=== PATIENT | male | born 1955 | race Caucasian/White ===

== ENCOUNTER 2020-10-14 15:13 | Outpatient (REF) | payer MEDICARE, SELFPAY ==
[2020-10-14 17:42] LABS: MANUAL DIFF FLAG NO
[2020-10-14 17:46] LABS: Basophils Absolute Auto 0.1 X10*3/uL (0.0-0.2); Basophils Percent Auto 0.8 % (0-2); Eosinophils Absolute Auto 0.6 X10*3/uL (0.0-0.4); Eosinophils Percent Auto 6.1 % (0-4); Hematocrit 44.7 % (42-52); Hemoglobin 14.6 g/dl (14.0-18.0); Imm Gran Abs Auto 0.02 X10*3/uL (0.00-0.03); Imm Gran Pct Auto 0.2 % (0.0-0.4); Lymphocytes Absolute Auto 2.8 X10*3/uL (1.2-4.9); Mean Corpuscular HGB Conc 32.7 g/dl (31.0-36.0); Mean Corpuscular Volume 88.7 fL (80-98); Monocytes Absolute Auto 0.7 X10*3/uL (0.1-1.2); Monocytes Percent Auto 6.3 % (2-11); Neutrophils Absolute Auto 6.2 X10*3/uL (2.0-8.3); Neutrophils Percent Auto 59.6 % (45-73); Platelet Count 412 X10*3/uL (160-400); Red Blood Count 5.04 X10*6/uL (4.60-5.80); Red Cell Distribution Width 13.1 % (11.0-16.0); White Blood Count 10.4 X10*3/uL (4.8-10.8)
[2020-10-14 18:19] LABS: Alanine Aminotransferase 13 U/L (0-40); Albumin Level 4.5 g/dL (3.5-5.0); Alkaline Phosphatase 108 U/L (39-117); Anion Gap 16 (12-20); Aspartate Amino Transferase 15 U/L (5-37); Bilirubin Direct 0.4 mg/dL (0.0-0.5); Bilirubin Total 0.8 mg/dL (0.0-1.0); Blood Urea Nitrogen 6 mg/dL (9-16); Calcium 9.2 mg/dL (8.4-10.2); Carbon Dioxide 25 mmol/L (22-29); Chloride 100 mmol/L (96-108); Estimated Glomerular Filt Rate > 60; Glucose Random 174 mg/dL (60-115); Iron 50 mcg/dL (45-160); Percent Iron Saturation 13 % (15-50); Potassium 4.6 mmol/l (3.3-5.1); Sodium 136 mmol/L (135-145); Total Iron Binding Capacity 383 mcg/dL (228-428); Total Protein 6.3 g/dL (6.5-8.0); Unsaturated Iron Binding 333 ug/dL
[2020-10-14 18:39] LABS: Ferritin 57 ng/mL (20-250)
== END 2020-10-14 15:14 | disposition home or self-care (01) ==
LOC: HO.MANLDS 15:13
PROVIDERS: PCP Physician Assistant; Visit Provider Physician Assistant
DX: K92.1 Melena (principal)
CPT/HCPCS: 36415; 80053; 80076; 82248; 82728; 83540; 85025

== ENCOUNTER 2020-10-17 | Outpatient (REF) | payer MEDICARE, SELFPAY ==
[2020-10-21 14:45] LABS: OBS Int Ctl Valid YES; OBS1 POS (NEG); OBS2 NEG (NEG); OBS3 NEG (NEG)
== END 2020-10-17 00:01 | disposition home or self-care (01) ==
LOC: HO.LNP
PROVIDERS: Visit Provider Physician Assistant
DX: K92.1 Melena (principal)
CPT/HCPCS: 82270

== ENCOUNTER 2021-03-03 15:31 | Outpatient (REF) | payer MEDICARE, SELFPAY ==
[2021-03-03 18:42] LABS: Creatinine Urine 133.44 mg/dL; Microalbum/Creatinine Ratio Ur 5.2 ug/mg cr
[2021-03-03 18:47] LABS: Alanine Aminotransferase 13 U/L (0-40); Albumin Level 4.5 g/dL (3.5-5.0); Alkaline Phosphatase 121 U/L (39-117); Anion Gap 14 (12-20); Aspartate Amino Transferase 19 U/L (5-37); Bilirubin Total 0.8 mg/dL (0.0-1.0); Blood Urea Nitrogen 6 mg/dL (9-16); Calcium 9.6 mg/dL (8.4-10.2); Carbon Dioxide 27 mmol/L (22-29); Chloride 99 mmol/L (96-108); Cholesterol 99 mg/dL; Estimated Glomerular Filt Rate > 60; Glucose Fasting 141 mg/dL (60-99); HDL Cholesterol 38 mg/dL; LDL Cholesterol Calculated 39 mg/dl; Potassium 4.8 mmol/L (3.3-5.1); Sodium 135 mmol/L (135-145); Total Protein 6.4 g/dL (6.5-8.0); Triglycerides 113 mg/dL
[2021-03-04 04:42] LABS: Estimated Average Glucose 163 mg/dL; Hemoglobin A1c % 7.3 %
== END 2021-03-03 15:32 | disposition home or self-care (01) ==
LOC: HO.MANLDS 15:31
PROVIDERS: PCP Internal Medicine; Visit Provider Internal Medicine
DX: E11.37X1 Type 2 diabetes mellitus with diabetic macular edema, resolved following treatment, right eye (principal)
CPT/HCPCS: 36415; 80053; 80061; 82043; 83036

== ENCOUNTER 2021-06-14 14:26 | Outpatient (REF) | payer MEDICARE, SELFPAY ==
[2021-06-14 18:24] LABS: Estimated Average Glucose 169 mg/dL; Hemoglobin A1c % 7.5 %
[2021-06-14 18:38] LABS: Microalbum/Creatinine Ratio Ur 8.6 ug/mg cr
[2021-06-14 18:41] LABS: Alanine Aminotransferase 14 U/L (0-40); Albumin Level 4.7 g/dL (3.5-5.0); Alkaline Phosphatase 127 U/L (39-117); Anion Gap 17 (12-20); Aspartate Amino Transferase 17 U/L (5-37); Bilirubin Total 0.6 mg/dL (0.0-1.0); Blood Urea Nitrogen 9 mg/dL (9-16); Carbon Dioxide 26 mmol/L (22-29); Chloride 100 mmol/L (96-108); Cholesterol 128 mg/dL; Estimated Glomerular Filt Rate > 60; Glucose Fasting 141 mg/dL (60-99); HDL Cholesterol 52 mg/dL; LDL Cholesterol Calculated 58 mg/dl; Sodium 138 mmol/L (135-145); Total Protein 6.8 g/dL (6.5-8.0); Triglycerides 94 mg/dL
== END 2021-06-14 14:27 | disposition home or self-care (01) ==
LOC: HO.MANLDS 14:26
PROVIDERS: PCP Internal Medicine; Visit Provider Internal Medicine
DX: E11.9 Type 2 diabetes mellitus without complications (principal); I10 Essential (primary) hypertension
CPT/HCPCS: 36415; 80053; 80061; 82043; 83036

== ENCOUNTER 2021-10-01 13:46 | Outpatient (REF) | payer MEDICARE, SELFPAY ==
[2021-10-02 07:32] LABS: Estimated Average Glucose 157 mg/dL; Hemoglobin A1c % 7.1 %
== END 2021-10-01 13:47 | disposition home or self-care (01) ==
LOC: HO.MANLDS 13:46
PROVIDERS: PCP Internal Medicine; Visit Provider Internal Medicine
DX: E11.9 Type 2 diabetes mellitus without complications (principal); I10 Essential (primary) hypertension
CPT/HCPCS: 36415; 83036

== ENCOUNTER 2022-01-28 15:06 | Outpatient (REF) | payer MEDICARE, SELFPAY ==
[2022-01-28 18:14] LABS: Estimated Average Glucose 189 mg/dL; Hemoglobin A1c % 8.2 %
[2022-01-28 18:15] LABS: Alanine Aminotransferase 34 U/L (0-40); Albumin Level 4.5 g/dL (3.5-5.0); Alkaline Phosphatase 123 U/L (39-117); Anion Gap 17 (12-20); Aspartate Amino Transferase 31 U/L (5-37); Bilirubin Total 0.8 mg/dL (0.0-1.0); Blood Urea Nitrogen 9 mg/dL (9-16); Calcium 10.1 mg/dL (8.4-10.2); Carbon Dioxide 24 mmol/L (22-29); Chloride 98 mmol/L (96-108); Cholesterol 100 mg/dL; Estimated Glomerular Filt Rate > 60; Glucose Fasting 167 mg/dL (60-99); HDL Cholesterol 35 mg/dL; LDL Cholesterol Calculated 35 mg/dl; Potassium 4.7 mmol/L (3.3-5.1); Sodium 134 mmol/L (135-145); Total Protein 6.6 g/dL (6.5-8.0); Triglycerides 152 mg/dL
[2022-01-28 18:16] LABS: Creatinine Urine 88.09 mg/dL; Microalbum/Creatinine Ratio Ur 10.2 ug/mg cr
== END 2022-01-28 15:07 | disposition home or self-care (01) ==
LOC: HO.MANLDS 15:06
PROVIDERS: PCP Internal Medicine; Visit Provider Internal Medicine
DX: I10 Essential (primary) hypertension (principal); E11.37X1 Type 2 diabetes mellitus with diabetic macular edema, resolved following treatment, right eye
CPT/HCPCS: 36415; 80053; 80061; 82043; 83036

== ENCOUNTER 2022-09-09 11:49 | Outpatient (REF) | payer MEDICARE, SELFPAY ==
[2022-09-09 14:11] LABS: Estimated Average Glucose 163 mg/dL; Hemoglobin A1c % 7.3 %
== END 2022-09-09 11:50 | disposition home or self-care (01) ==
LOC: HO.MANLDS 11:49
PROVIDERS: Visit Provider Internal Medicine
DX: E11.37X1 Type 2 diabetes mellitus with diabetic macular edema, resolved following treatment, right eye (principal)
CPT/HCPCS: 36415; 83036

== ENCOUNTER 2023-07-24 13:34 | Outpatient (REF) | payer MEDICARE, SELFPAY ==
[2023-07-24 17:55] LABS: MANUAL DIFF FLAG NO
[2023-07-24 18:11] LABS: Basophils Absolute Auto 0.1 X10*3/uL (0.0-0.2); Basophils Percent Auto 0.6 % (0-2); Eosinophils Absolute Auto 0.3 X10*3/uL (0.0-0.4); Eosinophils Percent Auto 2.9 % (0-4); Hematocrit 46.6 % (42.0-52.0); Hemoglobin 15.8 g/dl (14.0-18.0); Imm Gran Abs Auto 0.06 X10*3/uL (0.00-0.03); Imm Gran Pct Auto 0.6 % (0.0-0.4); Lymphocytes Absolute Auto 2.9 X10*3/uL (1.2-4.9); Lymphocytes Percent Auto 28.7 % (20-40); Mean Corpuscular HGB Conc 33.9 g/dl (31.0-36.0); Mean Corpuscular Volume 85.7 fL (80.0-98.0); Mean Platelet Volume 9.7 fL (9.4-12.4); Monocytes Absolute Auto 0.8 X10*3/uL (0.1-1.2); Monocytes Percent Auto 7.5 % (2-11); Neutrophils Percent Auto 59.7 % (45-73); Platelet Count 382 X10*3/uL (160-400); Red Blood Count 5.44 X10*6/uL (4.60-5.80); Red Cell Distribution Width 12.7 % (11.0-16.0); White Blood Count 10.1 X10*3/uL (4.8-10.8)
[2023-07-24 18:32] LABS: Alanine Aminotransferase 18 U/L (0-40); Albumin Level 4.4 g/dL (3.5-5.0); Alkaline Phosphatase 115 U/L (39-117); Anion Gap 16 (12-20); Aspartate Amino Transferase 21 U/L (5-37); Bilirubin Total 0.7 mg/dL (0.0-1.0); Blood Urea Nitrogen 9 mg/dL (9-16); Calcium 10.1 mg/dL (8.4-10.2); Carbon Dioxide 25 mmol/L (22-29); Chloride 99 mmol/L (96-108); Cholesterol 119 mg/dL (<200); Estimated Glomerular Filt Rate > 60; Glucose Random 202 mg/dL (60-115); HDL Cholesterol 40 mg/dL (>40); LDL Cholesterol Calculated 48 mg/dL (<100); Potassium 4.6 mmol/L (3.3-5.1); Sodium 135 mmol/L (135-145); Total Protein 6.3 g/dL (6.5-8.0); Triglycerides 155 mg/dL (<150)
[2023-07-24 18:40] LABS: Prostate Specific Antigen 0.69 ng/mL (<0.05-4.0)
[2023-07-25 05:18] LABS: Estimated Average Glucose 243 mg/dL; Hemoglobin A1c % 10.1 % (<6.0)
== END 2023-07-24 13:35 | disposition home or self-care (01) ==
LOC: HO.MANLDS 13:34
PROVIDERS: Visit Provider Internal Medicine
DX: E11.37X1 Type 2 diabetes mellitus with diabetic macular edema, resolved following treatment, right eye (principal); Z12.5 Encounter for screening for malignant neoplasm of prostate
CPT/HCPCS: 36415; 80053; 80061; 83036; 84153; 85025

== ENCOUNTER 2024-03-05 15:24 | Outpatient (REF) | payer MEDICARE, SELFPAY ==
[2024-03-05 17:39] LABS: MANUAL DIFF FLAG NO
[2024-03-05 17:45] LABS: Basophils Absolute Auto 0.1 X10*3/uL (0.0-0.2); Basophils Percent Auto 0.6 % (0-2); Eosinophils Absolute Auto 0.3 X10*3/uL (0.0-0.4); Eosinophils Percent Auto 3.5 % (0-4); Hematocrit 45.5 % (42.0-52.0); Hemoglobin 15.5 g/dl (14.0-18.0); Imm Gran Abs Auto 0.04 X10*3/uL (0.00-0.03); Imm Gran Pct Auto 0.5 % (0.0-0.4); Lymphocytes Absolute Auto 2.2 X10*3/uL (1.2-4.9); Lymphocytes Percent Auto 25.2 % (20-40); Mean Corpuscular HGB Conc 34.1 g/dl (31.0-36.0); Mean Corpuscular Hemoglobin 29.2 pg (27.0-33.0); Mean Corpuscular Volume 85.7 fL (80.0-98.0); Mean Platelet Volume 9.9 fL (9.4-12.4); Monocytes Absolute Auto 0.6 X10*3/uL (0.1-1.2); Monocytes Percent Auto 6.9 % (2-11); Neutrophils Absolute Auto 5.6 x10*3/uL (2.0-8.3); Neutrophils Percent Auto 63.3 % (45-73); Platelet Count 338 X10*3/uL (160-400); Red Blood Count 5.31 X10*6/uL (4.60-5.80); White Blood Count 8.8 X10*3/uL (4.8-10.8)
[2024-03-05 18:08] LABS: Alanine Aminotransferase 14 U/L (0-40); Albumin Level 4.2 g/dL (3.5-5.0); Alkaline Phosphatase 127 U/L (39-117); Anion Gap 13 (12-20); Aspartate Amino Transferase 18 U/L (5-37); Bilirubin Total 0.6 mg/dL (0.0-1.0); Blood Urea Nitrogen 6 mg/dL (9-16); Calcium 9.4 mg/dL (8.4-10.2); Carbon Dioxide 29 mmol/L (22-29); Chloride 100 mmol/L (96-108); Cholesterol 103 mg/dL (<200); Estimated Glomerular Filt Rate > 60; Glucose Random 208 mg/dL (60-115); HDL Cholesterol 43 mg/dL (>40); LDL Cholesterol Calculated 32 mg/dL (<100); Potassium 4.1 mmol/L (3.3-5.1); Sodium 138 mmol/L (135-145); Total Protein 6.4 g/dL (6.5-8.0); Triglycerides 141 mg/dL (<150)
[2024-03-05 18:23] LABS: Estimated Average Glucose 223 mg/dL; Hemoglobin A1c % 9.4 % (<6.0)
== END 2024-03-05 15:25 | disposition home or self-care (01) ==
LOC: HO.MANLDS 15:24
PROVIDERS: Visit Provider Internal Medicine
DX: E11.37X1 Type 2 diabetes mellitus with diabetic macular edema, resolved following treatment, right eye (principal)
CPT/HCPCS: 36415; 80053; 80061; 83036; 85025

== ENCOUNTER 2025-07-22 11:03 | Outpatient (REF) | payer MEDICARE, SELFPAY ==
[2025-07-22 13:01] LABS: MANUAL DIFF FLAG NO
[2025-07-22 13:22] LABS: Hematocrit 49.6 % (42.0-52.0); Hemoglobin 16.4 g/dl (14.0-18.0); Imm Gran Abs Auto 0.02 X10*3/uL (0.00-0.03); Imm Gran Pct Auto 0.2 % (0.0-0.4); Lymphocytes Absolute Auto 2.5 X10*3/uL (1.2-4.9); Mean Corpuscular HGB Conc 33.1 g/dl (31.0-36.0); Mean Corpuscular Hemoglobin 29.2 pg (27.0-33.0); Mean Corpuscular Volume 88.4 fL (80.0-98.0); NRBC Abs Auto 0.000 X10*3/uL (0.0-0.012); NRBC Pct Auto 0.0 /100WBC (0.0-0.2); Platelet Count 317 X10*3/uL (160-400); Red Blood Count 5.61 X10*6/uL (4.60-5.80); White Blood Count 9.3 X10*3/uL (4.8-10.8)
--- OUTSIDE RECORDS SUMMARY | 2025-07-22 13:24 | XMS_ITS | Encounter Summary ---
Author Organization [facility] Address [address] [place] [address] Phone Care Team Providers Care Registered Nurse Supervisor Name Role Phone Flex Cazares Viridiana LÓPEZ Primary Care Provider [phone] Encounter Details Date Type Department Care Team (Late st Contact Info) Description 09/22/2022 Procedure Pass Echo Lab [address] [place] [address] Social History Tobacco Use Types Packs/Day Years Used Date Smoking Tobacco: Light Smoker Cigars Smokeless Tobacco: Never Comments:Rarely ~3 per year Alcohol Use Standard Drinks/Week Comments Not Currently 0 (1 standard drink = 0.6 oz pur e alcohol) rare Sex and Gender Information Value Date Recorded Sex Assigned at Male 08/22/2022 2:45 AM EDT Legal Sex Male 9:56 PM EDT Gender Identity Male 08/22/2022 2:45 AM EDT Sexual Orientation Straight 09/18/2022 11 :21 AM EST documented as of this encounter Plan of Treatment Upcoming Encounters Date Type Department Care Team (Late st Contact Info) Description 02/10/2025 Procedure Pass Echo Lab [place] [address] [place] [address] 07/30/2025 2:30 PM EDT Appointment Echo Lab [place] [address] [place] [address] Mar Maher PA-C [address] [place] [address] 08/11/2025 9:40 AM EDT Office Visit [facility] [address] [place] [address] 3rd Floor, [address] [place] [address] Thai Lugo MD 22 [facility], [address] [place] [address] [email or web address] documented as of this encounter Visit Diagnoses Not on filedocumented in this encounter Care Teams Registered Nurse Supervisor Relationship Specialty Start Date End Date Flex Cazares DO PCP - General Internal Medicine 09/19/17 documented as of this encounter Additional Source Comments The information contained in this document represents components of the legal health record. It is not the complete legal health record.[facility]
--- OUTSIDE RECORDS SUMMARY | 2025-07-22 13:24 | XMS_ITS | Clinical Summary ---
Author Organization [facility] Address [address] [place] [address] Care Team Providers Care Yarn Dry Room Worker Name Role Phone Sienna Solis MD Primary Care Provider [phone] Social History Tobacco Use Types Packs/Day Years Used Date Smoking Tobacco: Never Assessed Sex and Gender Information Value Date Recorded Sex Assigned at Not on file Legal Sex Male 11:17 AM EDT Gender Identity Not on file Sexual Orientation Not on file Plan of Treatment Health Maintenance Due Date Last Done Comments Advance Care Planning 1955 Hepatitis C Virus Screening 1955 DTaP/Tdap/Td Vaccines (1 - Tdap) 1974 Pneumococcal Vaccines 50+ (1 of 1 - PCV) 2005 Zoster (Shingles) Vaccine (1 of 2) 2005 COVID-19 Vaccine ( - 2023-2 5 season) 2025 RSV Vaccine 60 years and old er and Patients (1 - 1-dose 75+ series) 2030 Hepatitis B Vaccines Aged Out No long er eligible based on patient's age to complete this topic Care Teams Yarn Dry Room Worker Relationship Specialty Start Date End Date Sienna Solis MD [address] [place] [id number] PCP - General
--- OUTSIDE RECORDS SUMMARY | 2025-07-22 13:24 | XMS_ITS | Clinical Summary ---
Author Organization [facility] Address [address] [place] [address] Phone Care Team Providers Care Microelectronics Technician Name Role Phone Flex Cazares Primary Care Provider [phone] Allergies Active Allergy Reactions Criticality Noted Date Comments Dulaglutide Nausea And Vomiting,Nausea Only Medium 08/2022 Medications acetaminophen (TYLENOL) 500 mg tablet acetaminophen 500 mg tablet TAKE 2 TABLETS BY MOUTH THREE TIMES DAILY NEEDED FOR MILD PAIN Active albuterol HFA (PROAIR HFA ; PROVENTIL HFA ; VENTOLIN HFA) 90 mcg/actuation inhaler ProAir HFA 90 mcg/actuation aerosol inhaler Inhale 2 puffs every 4-6 hours by inhalation route. Active aspirin 81 mg EC tablet Take 1 tablet (81 mg total) by mouth daily. 0 Active atorvastatin (LIPITOR) 80 mg tablet Take 1 tablet (80 mg total) by mouth daily. 4 Active buPROPion XL (WELLBUTRIN XL) 300 mg 24 hr tablet Take 1 tablet (300 mg total) by mouth 1 (one) time each day. Active busPIRone (BUSPAR) 10 mg tablet Take 1 tablet (10 mg total) by mouth daily. 2 Active carvediloL (COREG) 6.25 mg tablet Take 1 tablet (6.25 mg total) by mouth 2 times daily. 4 Active docusate sodium (COLACE) 100 mg capsule Take 1 capsule (100 mg total) by mouth 2 (two) times a day. 4 Active DULoxetine (CYMBALTA) [address] capsule Take 1 capsule (60 mg total) by mouth 1 (one) time each day. Active Jardiance 10 mg tablet daily. 3 Active ibuprofen (ADVIL,MOTRIN) 600 mg tablet 4 Active Lantus Solostar U-100 Insulin 100 unit/mL (3 mL) injection pen Inject 30 Units under the skin at bedtime. Active ipratropium (ATROVENT) 21 mcg (0.03 %) nasal spray Administer 1 spray into affected nostril(s) once daily as needed. Active losartan (COZAAR) 25 mg tablet Take 1 tablet (25 mg total) by mouth. Active metFORMIN (GLUCOPHAGE) 1,000 mg tablet Take 1 tablet (1,000 mg total) by mouth 2 (two) times a day. Active methylcellulos e, laxative, 500 mg tablet Take 1 g by mouth 2 times daily. Active multivitamin (multivitamin- iron-minerals) tablet Take 1 tablet by mouth daily. Active omeprazole (PriLOSEC) [address] capsule Take 1 capsule (20 mg total) by mouth daily. Active tadalafiL (CIALIS) 5 mg tablet Take 1 tablet (5 mg total) by mouth 1 (one) time each day. Active tamsulosin (FLOMAX) 0.4 mg 24 hr capsule Take 1 capsule (0.4 mg total) by mouth daily. 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 02/14/2022 Chronic back pain 04/23/2018 Asthma 04/23/2018 Essential hypertension 04/23/2018 Surgical History Surgery Date Site/Laterality Comments TONSILLECTOMY ADENOIDECTOMY, BILATERAL MYRINGOTOMY AND TUBES PROCEDURE: AR TONSILLECTOMY & ADENOIDECTOMY <AGE 12 HERNIA REPAIR PROCEDURE: REPAIR UMBILICAL HERNIA HAND SURGERY PROCEDURE: AR UNLISTED PROCEDURE HANDS/FINGERS FINGER SURGERY 11/13/2016 - 11/12/2017 Bilateral thumb, trapeziectomy w/ interpositonal arthroplasty PIP JOINT FUSION 08/29/2024 Right index finger Medical History Medical History Date Comments Diabetes mellitus type 2, co ntrolled, with complications ([facility], [facility] V28) DX:Diabetes mellitus type 2, controlled, with complications (HCC) Heart attack ([facility] V24, [facility] V28) 10/2019 DX:Heart attack (HCC) Essential hypertension DX:Essent ial hypertension Depressive disorder DX:Depressiv e disorder Congestive heart failure (CH F) ([facility] V24, [facility] V28) DX:Congestive heart failure (CHF) ([facility]) Hyperlipidemia DX:Hyperlipidemi a Social History Tobacco Use Types Packs/Day Years Used Date Smoking Tobacco: Every Day Smokeless Tobacco: Never Alcohol Use Standard Drinks/Week Comments Yes 0 (1 standard drink = 0.6 oz pur e alcohol) Sex and Gender Information Value Date Recorded Sex Assigned at Not on file Legal Sex Male 6:41 PM EST Gender Identity Not on file Sexual Orientation Not on file Obstetrics History Last Filed Vital Signs Vital Sign Reading Time Taken Comments Blood Pressure 138/92 08/19/2024 3:08 PM EDT Pulse 64 08/19/2024 3:08 PM EDT Temperature - - Respiratory Rate - - Oxygen Saturation - - Inhaled Oxygen Concentration - - Weight 95.3 kg (210 lb) 03/11/2025 1:05 PM EDT Height 180.3 cm (5' 11 ) 03/11/2025 1:05 PM EDT Body Mass Index 29.29 03/11/2025 1:05 PM EDT Plan of Treatment Health Maintenance Due Date Last Done Comments Diabetes: Annual Foot Exam 1965 Diabetes: Annual Retina Eye Exam 1965 Pneumococcal Vaccine: 50+ Years (2 of 2 - PPSV23) 10/28/2020 09/02/2020 Abdominal Aortic Aneurysm (AAA) Screen 10/23/2022 Colorectal Cancer Screening: Colonoscopy 10/23/2022 Falls Risk Assessment 10/23/2022 Hepatitis C Screening 10/23/2022 Medicare Annual Wellness Visit 10/23/2022 Social Influencers of Health Screening 10/23/2022 Diabetes: Annual Urine Albumin-Creatinine Ratio (uACR) 10/08/2024 2020 Diabetes: Blood Sugar Control Test (HGBA1C) 10/08/2024 Depression Screening 11/13/2024 COVID-19 Vaccine ( season) 2025 07/10/2024, 08/07/2023, 08/15/2022, Additional history exists Influenza Vaccine (#1) 2025 , 10/13/2023, 09/03/2022, Additional history exists Diabetes: Annual GFR (Glomerular Filtration Rate) 11/01/2025 11/01/2024, 2020 Hypertension/CHF/CAD Annual BMP Blood Test 11/01/2025 11/01/2024, 2020 Cholesterol Screening (Lipid Panel) 11/01/2029 11/01/2024 DTaP,Tdap,and Td Vaccines (2 - Td or Tdap) 09/23/2030 09/23/2020 Zoster Vaccines Completed 01/27/2021, 11/13, 09/23/2020 RSV Immunization Adult Patients Completed 10/13/2023 HIB Vaccines Aged Out No longer eligi ble based on patient's age to complete this topic HPV Vaccines Aged Out No longer eligi ble based on patient's age to complete this topic Hepatitis A Vaccines Aged Out No long er eligible based on patient's age to complete this topic Hepatitis B Vaccines Aged Out No long er eligible based on patient's age to complete this topic IPV Vaccines Aged Out No longer eligi ble based on patient's age to complete this topic MMR Vaccines Aged Out No longer eligi ble based on patient's age to complete this topic Meningococcal ACWY Vaccine Aged Out N o longer eligible based on patient's age to complete this topic Meningococcal B Vaccine Aged Out No l onger eligible based on patient's age to complete this topic RSV Immunization Patients Under 20 months Aged Out No longer eligible based on patient's age to complete this topic Varicella Vaccines Aged Out No longer eligible based on patient's age to complete this topic Insurance MEDICARE Care Teams Microelectronics Technician Relationship Specialty Start Date End Date Flex Cazares DO 6 [facility] [place], [place] PCP - General Internal Medicine 09/20/24
--- OUTSIDE RECORDS SUMMARY | 2025-07-22 13:25 | XMS_ITS | Encounter Summary ---
Author Organization [facility] Address [address] [place] [address] Phone Care Team Providers Care Able Bodied Seaman Name Role Phone Gaylachai Flex Viridiana LÓPEZ Primary Care Provider [phone] Encounter Details Date Type Department Care Team (Late Contact Info) Description 12/08/2020 Procedure Pass [facility] Endoscopy Admitting Dept Virtual Department [address] [place] [address] Social History Tobacco Use Types Packs/Day Years Used Date Smoking Tobacco: Light Smoker Cigars Smokeless Tobacco: Never Comments:Rarely ~3 per year Alcohol Use Standard Drinks/Week Comments Yes 0 [...] Info) Description 02/10/2025 Procedure Pass Echo Lab [address] [place] [address] 07/30/2025 2:30 PM EDT Appointment Echo Lab [address] [place] [address] Mar Maher PA-C [address] [place] [address] 08/11/2025 9:40 AM EDT Office Visit [facility] [address] [place] [address] 3rd Floor, [address] [place] [address] Thai Lugo MD 22 [facility], [address] [place] [address] [email or web address] documented as of this encounter Visit Diagnoses Not on filedocumented in this encounter Care Teams Able Bodied Seaman Relationship Specialty Start Date End Date Flex Cazares DO PCP - General Internal Medicine 09/19/17 documented as of this encounter Additional Source Comments The information contained in this document represents components of the legal health record. It is not the complete legal health record.[facility]
--- OUTSIDE RECORDS SUMMARY | 2025-07-22 13:25 | XMS_ITS | Encounter Summary ---
Author Organization [facility] Address [address] [facility] [address] [place] [address] Phone Care Team Providers Care Business Operations Analyst Name Role Phone Flex Cazares DO Primary Care Provider [phone] Encounter Details Date Type Department Care Team (Latest Contact Info) Description 03/19/2024 Transcribe Orders Virtual Department [address] [place] [address] Emely Barrett PA [address] [place] [address] [place] [address] Wheezing (Primary Dx) Social History Tobacco Use Types Packs/Day Years Used Date Smoking Tobacco: Light Smoker Cigars Smokeless Tobacco: Never Comments:Rarely ~3 per year Alcohol Use Standard Drinks/Week Comments Never 0 (1 standard drink = 0.6 oz pur e alcohol) Education Answer Date Recorded Are you interested in more education? Not on clarita e 03/10/2023 Are you concerned about learning? Not on file 03/10/2023 No 03/10/2023 No 03/10/2023 Digital Access Answer Date Recorded No 04/08/2023 No 04/08/2023 Reliable internet access at home? Not on file 04/08/2023 Device with a working camera? Not on file Intimate Partner Violence Answer Date R ecorded Are you denied basic needs s uch as food, clothing, or medical care? No 10/28/2023 In the past 12 months have y ou been in a relationship with a person who hurts, threatens, or tries to control you? No 10/28/2023 Are you denied basic needs s uch as food, clothing, or medical care? No 10/28/2023 In the past 12 months have y ou been in a relationship with a person who hurts, threatens, or tries to control you? No 10/28/2023 Sex and Gender Information Value Date Recorded Sex Assigned at Male 08/22/2022 2:45 AM EDT Legal Sex Male 9:56 PM EDT Gender Identity Male 08/22/2022 2:45 AM EDT Sexual Orientation Straight 09/18/2022 11 :21 AM EST documented as of this encounter Plan of Treatment Upcoming Encounters Date Type Department Care Team (Late st Contact Info) Description 02/10/2025 Procedure Pass Echo Lab [address] [place] [address] 07/30/2025 2:30 PM EDT Appointment Echo Lab [address] [place] [address] Mar Maher PA-C [address] [place] [address] 08/11/2025 9:40 AM EDT Office Visit [facility] [address] [place] [address] 3rd Floor, [address] [place] [address] Thai Lugo MD [address] [place] [address], [address] [address] [email or web address] documented as of this encounter Results * XR CHEST PA AND LATERAL 2 VIEWS (2024 10:48 AM EDT) Anatomical Region Laterality Modality Chest Computed Radiogr aphy 2024 2:40 PM EDT Impressions 2024 2:41 PM EDT No acute findings. Narrative 2024 2:41 PM EDT XR CHEST PA AND LATERAL 2 VIEWS Referring clinician's provided indication for this examination in Epic: Wheezing; wheezing COMPARISON: 09/18/2022 FINDINGS: Lungs: Clear lungs. Linear atelectasis in the left lung base. Pleura: No pleural effusion. No pneumothorax Heart/Mediastinum: Heart size normal. Bones/Soft Tissues: No acute finding Procedure Note Gus Vu MD, BESSY - 2024 XR CHEST PA AND LATERAL 2 VIEWS Referring clinician's provided indication for this examination in Epic:Wheezing; wheezing COMPARISON: 09/18/2022 FINDINGS: Lungs: Clear lungs. Linear atelectasis in the left lung base. Pleura: No pleural effusion. No pneumothorax Heart/Mediastinum: Heart size normal. Bones/Soft Tissues: No acute finding IMPRESSION: No acute findings. us Emely SEPULVEDA IMG XR CHEST Final Resul t documented in this encounter Visit Diagnoses Diagnosis Wheezing- Primary Wheezing documented in this encounter Care Teams Business Operations Analyst Relationship Specialty Start Date End Date Flex Cazares DO [email or web address] PCP - General Internal Medicine 09/19/17 documented as of this encounter Additional Source Comments The information contained in this document represents components of the legal health record. It is not the complete legal health record.[facility]
--- OUTSIDE RECORDS SUMMARY | 2025-07-22 13:25 | XMS_ITS | Encounter Summary ---
Author Organization [facility] Address [facility] [employer] [address] [address] Phone Care Team Providers Care Gynecology Teacher Name Role Phone GaylaFlex paula Viridiana LÓPEZ Primary Care Provider [phone] Encounter Details Date Type Department Care Team (Latest Contact Info) Description 10/16/2020 Transcribe Orders Virtual Department [address] [place] [address] Emely Barrett PA [address] [place] [address] [place] [address] Melena (Primary Dx); Hematochezia Social History Tobacco Use Types Packs/Day Years [...] Info) Description 02/10/2025 Procedure Pass Echo Lab [address] [place] [address] 07/30/2025 2:30 PM EDT Appointment Echo Lab [address] [place] [address] Mar Maher, PAChauC [address] [place] [address] [email or web address] 08/11/2025 9:40 AM EDT Office Visit [facility] [address] [place] [address] 3rd Floor, [address] [place] [address] Thai Lugo MD 22 [facility], [address] [place] [address] [email or web address] documented as of this encounter Results * US Abdomen Complete (11/03/2020 8:29 AM EST) Anatomical Region Laterality Modality Abdomen Ultrasound 11/03/2020 8:31 AM EST Impressions 11/03/2020 8:41 AM EST Suggestion of small gallstones. No evidence of cholecystitis. Narrative 11/03/2020 8:41 AM EST US ABDOMEN COMPLETE TECHNIQUE: Ultrasound evaluation of the abdomen. Volumetric sweeps were obtained and reviewed. COMPARISON: None FINDINGS: MIDLINE VASCULATURE: The visualized IVC is patent. Portal vein is patent. The aorta is visualized. The maximum visualized aortic diameter is 2.3 cm. LIVER: No focal lesions. BILIARY: Gallbladder: Tiny echogenic foci are noted at the dependent portion of the gallbladder that may represent small gallstones. There is no pericholecystic fluid, there was a reported negative Sethi's sign. Common bile duct measures 0.4 cm. PANCREAS: Incompletely visualized due to overlying bowel gas. SPLEEN: No splenomegaly. PERITONEUM: No free fluid. KIDNEYS: Normal size bilaterally. No hydronephrosis. No sonographically evident solid mass lesion. Procedure Note Tyler Frank MD - 11/03/2020 US ABDOMEN COMPLETE TECHNIQUE: Ultrasound evaluation of the abdomen. Volumetric sweeps were obtained andreviewed. COMPARISON: None FINDINGS: MIDLINE VASCULATURE: The visualized IVC is patent. Portal vein ispatent. The aorta is visualized. The maximum visualized aortic diameter is2.3 cm. LIVER: No focal lesions. BILIARY: Gallbladder: Tiny echogenic foci are noted at the dependentportion of the gallbladder that may represent small gallstones. There isno pericholecystic fluid, there was a reported negative Sethi's sign. Common bile duct measures 0.4 cm. PANCREAS: Incompletely visualized due to overlying bowel gas. SPLEEN: No splenomegaly. PERITONEUM: No free fluid. KIDNEYS: Normal size bilaterally. No hydronephrosis. No sonographicallyevident solid mass lesion. IMPRESSION: Suggestion of small gallstones. No evidence of cholecystitis. us Emely SEPULVEDA IMG US ABDOMEN Final Resul t documented in this encounter Visit Diagnoses Diagnosis Melena- Primary Blood in stool Hematochezia Blood in stool Melena Blood in stool Hematochezia Blood in stool documented in this encounter Care Teams Gynecology Teacher Relationship Specialty Start Date End Date Flex Cazares DO [email or web address] PCP - General Internal Medicine 09/19/17 documented as of this encounter Additional Source Comments The information contained in this document represents components of the legal health record. It is not the complete legal health record.[facility]
--- OUTSIDE RECORDS SUMMARY | 2025-07-22 13:25 | XMS_ITS | Encounter Summary ---
Author Organization [facility] Address [facility] [employer] [address] [address] Phone Care Team Providers Care Gas Systems Worker Name Role Phone Flex Cazares DO Primary Care Provider Encounter Details Date Type Department Care Team ([facility] st Contact Info) Description 08/22/2022 Transcribe Orders [facility] [address] [place] [address] Suni Christian PA [address] [place] [address] [phone] Social History Tobacco Use Types Packs/Day Years [...] AM EST documented as of this encounter Functional Status * Calculated C-SSRS Risk Score (Lifetime/Recent) Answer Date of Assessment Author No Risk Indicated 08/22/2022 2:45 AM EDT Yulia Rey RN * [place] Suicide Severity Rating Scale (Screener/Recent Self-Report) Question Answer Date of Assessment Author 1. Wish to be (Past 1 Month) No 08/22/2022 2:45 AM EDT Yulia Valdez RN 2. Non-Specific Active Suici [place] Thoughts (Past 1 Month) No 08/22/2022 2:45 AM EDT Chely Valdez RN 6. Suicidal Behavior (Lifetime) No 2:45 AM EDT Yulia Valdez RN documented as of this encounter Plan of Treatment Upcoming Encounters Date Type Department Care Team (Late st Contact Info) Description 02/10/2025 Procedure Pass Echo Lab [address] [place] [address] 07/30/2025 2:30 PM EDT Appointment Echo Lab [address] [place] [address] Mar Maher PA-C [address] [place] [address] 08/11/2025 9:40 AM EDT Office Visit [facility] [address] [place] [address] 3rd Floor, [address] [place] [address] Thai Lugo MD [address] [place] [address], [address] [address] [email or web address] documented as of this encounter Visit Diagnoses Not on filedocumented in this encounter Care Teams Gas Systems Worker Relationship Specialty Start Date End Date Flex Cazares DO PCP - General Internal Medicine 09/19/17 documented as of this encounter Additional Source Comments The information contained in this document represents components of the legal health record. It is not the complete legal health record.[facility]
--- OUTSIDE RECORDS SUMMARY | 2025-07-22 13:25 | XMS_ITS | Encounter Summary ---
Author Organization [facility] Address [address] [place] [address] Phone Care Team Providers Care Algebraist Name Role Phone GaylaFlex paula Viridiana LÓPEZ Primary Care Provider [phone] Encounter Details Date Type Department Care Team (Late Contact Info) Description 03/30/2022 Procedure Pass [facility] Endoscopy Admitting Dept Virtual Department [address] [place] [address] Social History Tobacco Use Types Packs/Day Years [...] Encounters Date Type Department Care Team (Late Contact Info) Description 02/10/2025 Procedure Pass Echo Lab [address] [place] [address] 07/30/2025 2:30 PM EDT Appointment Echo Lab [address] [place] [address] Mar Maher PA-C [address] [place] [address] 08/11/2025 9:40 AM EDT Office Visit [facility] [address] [place] [address] 3rd Floor, [address] [place] [address] Thai Lugo MD 22 [facility], [address] [place] [address] [email or web address] documented as of this encounter Visit Diagnoses Not on filedocumented in this encounter Care Teams Algebraist Relationship Specialty Start Date End Date Flex Cazares DO PCP - General Internal Medicine 09/19/17 documented as of this encounter Additional Source Comments The information contained in this document represents components of the legal health record. It is not the complete legal health record.[facility]
--- OUTSIDE RECORDS SUMMARY | 2025-07-22 13:25 | XMS_ITS | Encounter Summary ---
Author Organization [facility] Address [address] [place] [phone] Phone Care Team Providers Care Commercial Portfolio Manager Name Role Phone Flex Cazares DO Primary Care Provider Encounter Details Date Type Department Care Team (Late st Contact Info) Description 12/14/2023 Procedure Pass [place] Admitting Dept - Virtual Department [address] [place] [address] Social History Tobacco Use Types Packs/Day Years [...] Info) Description 02/10/2025 Procedure Pass [facility] [address] [place] [address] 07/30/2025 2:30 PM EDT Appointment Echo [facility] [address] [place] [address] Mar Maher PA-C [address] [place] [address] 08/11/2025 9:40 AM EDT Office Visit [facility] [address] [place] [address] 3rd Floor, [address] [place] [address] Thai Lugo MD [address] [place] [address], [address] [address] [email or web address] documented as of this encounter Visit Diagnoses Not on filedocumented in this encounter Care Teams Commercial Portfolio Manager Relationship Specialty Start Date End Date Flex Cazares DO PCP - General Internal Medicine 09/19/17 documented as of this encounter Additional Source Comments The information contained in this document represents components of the legal health record. It is not the complete legal health record.[facility]
--- OUTSIDE RECORDS SUMMARY | 2025-07-22 13:25 | XMS_ITS | Encounter Summary ---
Author Organization [facility] Address [address] [place] [address] Phone Care Team Providers Care Barrel Raiser Name Role Phone GaylachaiFlex DO Primary Care Provider [phone] Encounter Details Date Type Department Care Team (Late st Contact Info) Description 08/22/2022 Procedure Pass [facility], Ct Scan - [address] [address] Social History Tobacco Use Types Packs/Day Years [...] 2:45 AM EDT Yulia Rey RN * [place] Suicide Severity Rating Scale (Screener/Recent Self-Report) Question Answer Date of Assessment Author 1. Wish to be (Past 1 Month) No 08/22/2022 2:45 AM EDT Yulia Valdez RN 2. Non-Specific Active Suici [place] Thoughts (Past 1 Month) No 08/22/2022 2:45 AM EDT Chely Valdez RN 6. Suicidal Behavior (Lifetime) No 2 2:45 AM EDT Yulia Valdez RN documented as of this encounter Plan of Treatment Upcoming Encounters Date Type Department Care Team (Late st Contact Info) Description 02/10/2025 Procedure Pass [facility] [address] [address] 07/30/2025 2:30 PM EDT Appointment Echo [facility] [address] [address] Mar Maher PA-C [address] [place] [address] 08/11/2025 9:40 AM EDT Office Visit [facility] [address] [place] [address] [address]rd Floor, [address] [place], [place] [phone] Thai Lugo MD [address] [place] [address], [address] [address] [email or web address] documented as of this encounter Visit Diagnoses Not on filedocumented in this encounter Care Teams Barrel Raiser Relationship Specialty Start Date End Date Flex Cazares DO PCP - General Internal Medicine 09/19/17 documented as of this encounter Additional Source Comments The information contained in this document represents components of the legal health record. It is not the complete legal health record.[facility]
--- OUTSIDE RECORDS SUMMARY | 2025-07-22 13:25 | XMS_ITS | Encounter Summary ---
Author Organization [facility] Address [address] [place] [address] Phone Care Team Providers Care Nuclear Power Reactor Operator Name Role Phone Flex Cazares DO Primary Care Provider [phone] Encounter Details Date Type Department Care Team (Late st Contact Info) Description 11/20/2024 Procedure Pass [facility] Endoscopy Admitting Dept Virtual Department [address] [place] [address] Social History Tobacco Use Types Packs/Day Years Used Date Smoking Tobacco: Light Smoker Cigars Smokeless Tobacco: Never Comments:Rarely ~3 per year Alcohol Use Standard Drinks/Week Comments Yes 0 (1 standard drink = 0.6 oz pur e alcohol) 1 beer per month Education Answer Date Recorded Are you interested [...] as food, clothing, or medical care? No 11/20/2024 In the past 12 months have y ou been in a relationship with a person who hurts, threatens, or tries to control you? No 11/20/2024 Are you denied basic needs s uch as food, clothing, or medical care? No 11/20/2024 In the past 12 months have y ou been in a relationship with a person who hurts, threatens, or tries to control you? No 11/20/2024 Sex and Gender Information Value Date Recorded Sex Assigned at Male 08/22/2022 2:45 AM EDT Legal Sex Male 9:56 PM EDT Gender Identity Male 08/22/2022 2:45 AM EDT Sexual Orientation Straight 09/18/2022 11 :21 AM EST documented as of this encounter Plan of Treatment Upcoming Encounters Date Type Department Care Team (Late st Contact Info) Description 02/10/2025 Procedure Pass [facility] [address] [place] [address] 07/30/2025 2:30 PM EDT Appointment [facility] [address] [place] [address] Mar Maher PA-C [address] [place] [address] 08/11/2025 9:40 AM EDT Office Visit [facility] [address] [place] [address] [address]rd Floor, [address] [place] [address] Thai Lugo MD [address] [place] [address], [address] [address] [email or web address] documented as of this encounter Visit Diagnoses Not on filedocumented in this encounter Care Teams Nuclear Power Reactor Operator Relationship Specialty Start Date End Date Flex Cazares DO PCP - General Internal Medicine 09/19/17 documented as of this encounter Additional Source Comments The information contained in this document represents components of the legal health record. It is not the complete legal health record.[facility]
--- OUTSIDE RECORDS SUMMARY | 2025-07-22 13:25 | XMS_ITS | Encounter Summary ---
Author Organization [facility] Address [address] [place] [address] Phone Care Team Providers Care Electrician'S Assistant Name Role Phone Flex Cazares DO Primary Care Provider [phone] Flex Cazares DO Unavailable Reason for Referral * Occupational Therapy (Routine) - Closed Specialty Diagnoses / Procedures Referred By Mk almonte Referred To Contact Occupational Therapy Diagnoses Encounter for rehabilitation Melissa Hart MD Phone: tel: fax: mailto:[email or web address] [email or web address] Referral ID Status Reason Start Date Expiration Date Visits Re quested Visits Authorized [id number] Closed 04/11/2018 04/10/2019 20 20 Encounter Details Date Type Department Care Team (Latest Contact Info) Description 03/01/2018 Transcribe Orders [facility] Services [address] [place] [address] Melissa Hart MD [address] [place] [phone] [email or web address] Encounter for rehabilitation (Primary Dx) Social History Tobacco Use Types [...] Info) Description 02/10/2025 Procedure Pass [facility] [address] [place] [address] 07/30/2025 2:30 PM EDT Appointment [facility] [address] [place] [address] Mar Maher PA-C [address] [place] [address] 08/11/2025 9:40 AM EDT Office Visit [facility] [address] [place] [address] 3rd Floor, [address] [place] [address] Thai Lugo MD [address] [place] [address] documented as of this encounter Procedures Procedure Name Priority Date/Time Associated Diagnosis Comments AMB REFERRAL TO [facility] OCCUPATIONAL THERAPY Routine 04/11/2018 12:34 PM EDT Encounter for rehabilitation documented in this encounter Results * Ambulatory referral to [facility] Occupational Therapy (04/11/2018 12:34 PM EDT) Melissa Hart MD AMB [facility] REFERRALS Final Result documented in this encounter Visit Diagnoses Diagnosis Encounter for rehabilitation- Primary documented in this encounter Care Teams Electrician'S Assistant Relationship Specialty Start Date End Date Flex Cazares DO PCP - General Internal Medicine 09/19/17 Flex Cazares DO [address] [facility] [place] [address] Insurance Assigned Provider 02/10/18 10/19/19 documented as of this encounter Additional Source Comments The information contained in this document represents components of the legal health record. It is not the complete legal health record.[facility]
--- OUTSIDE RECORDS SUMMARY | 2025-07-22 13:25 | XMS_ITS | Encounter Summary ---
Author Organization [facility] Address [address] [place] [address] Phone Care Team Providers Care Phosphoric Acid Supervisor Name Role Phone Flex Cazares DO Primary Care Provider [phone] Reason for Referral * Occupational Therapy (Elective) - Closed Specialty Diagnoses / Procedures Referred By Contsy t Referred To Contact Occupational Therapy Diagnoses Encounter for rehabilitation Left Index finger DIP /PIP Suni Christian PA Phone: tel: fax: [address] [address] Phone: tel: Referral ID Status Reason Start Date Expiration Date Visits Re quested Visits Authorized [id number] Closed 11/03/2020 11/12/2020 99 99 Encounter Details Date Type Department Care Team (Latest Contact Info) Description 11/03/2020 Transcribe Orders [facility] [address] [place] [address] Suni Christian PA [address] [place] [phone] Encounter for rehabilitation (Primary Dx) Social History [...] Info) Description 02/10/2025 Procedure Pass [facility] [address] [place] [address] 07/30/2025 2:30 PM EDT Appointment [facility] [address] [place] [address] Mar Maher PA-C [address] [place] [address] 08/11/2025 9:40 AM EDT Office Visit [facility] [address] [place] [address] 3rd Floor, [address] [place] [address] Thai Lugo MD [address] [place] [address], [address] [place] [address] Scheduled Referrals Name Type Priority Associated Diagnoses Orde r Schedule Ambulatory referral to [facility] Occupational Therapy Outpatient Referral Routine Encounter for rehabilitation Ordered: 11/03/2020 documented as of this encounter Visit Diagnoses Diagnosis Encounter for rehabilitation- Primary documented in this encounter Care Teams Phosphoric Acid Supervisor Relationship Specialty Start Date End Date Flex Cazares DO PCP - General Internal Medicine 09/19/17 documented as of this encounter Additional Source Comments The information contained in this document represents components of the legal health record. It is not the complete legal health record.[facility]
--- OUTSIDE RECORDS SUMMARY | 2025-07-22 13:25 | XMS_ITS | Encounter Summary ---
Author Organization [facility] Address [address] [place] [address] Phone Care Team Providers Care Cte Teacher Name Role Phone Flex Cazares DO Primary Care Provider [phone] Flex Cazares DO Unavailable Reason for Referral * Occupational Therapy (Routine) - Closed Specialty Diagnoses / Procedures Referred By Mk almonte Referred To Contact Occupational Therapy Diagnoses Encounter for rehabilitation Right Ring & Middle Joint Replacement Procedures Evaluate & Treat Melissa Hart MD Phone: tel: fax: mailto:[email or web address] [address] [address] Phone: tel: Referral ID Status Reason Start Date Expiration Date Visits Re quested Visits Authorized [id number] Closed 02/25/2019 07/02/2019 16 16 Encounter Details Date Type Department Care Team (Latest Contact Info) Description 02/22/2019 Transcribe Orders [facility] [address] [place] [address] Melissa Hart MD [address] [place] [phone] [email or web address] Encounter for rehabilitation (Primary Dx) Social History Tobacco Use Types Packs/Day Years Used Date Smoking Tobacco: Light Smoker Smokeless Tobacco: Never Alcohol Use Standard Drinks/Week [...] Info) Description 02/10/2025 Procedure Pass [facility] [address] [place] [address] 07/30/2025 2:30 PM EDT Appointment Echo Lab [address] [place] [address] Mar Maher PA-C [address] [place] [address] 08/11/2025 9:40 AM EDT Office Visit [facility] [address] [place] [address] 3rd Floor, [address] [place] [address] Thai Lugo MD [address] [place] [address], [address] [address] [email or web address] Scheduled Referrals Name Type Priority Associated Diagnoses Orde r Schedule Ambulatory referral to [facility] Occupational Therapy Outpatient Referral Routine Encounter for rehabilitation Ordered: 02/22/2019 documented as of this encounter Visit Diagnoses Diagnosis Encounter for rehabilitation- Primary documented in this encounter Care Teams Cte Teacher Relationship Specialty Start Date End Date Flex Cazares DO PCP - General Internal Medicine 09/19/17 Flex Cazares DO [address] [facility] [place] [address] [place] [address] Insurance Assigned Provider 02/10/18 10/19/19 documented as of this encounter Additional Source Comments The information contained in this document represents components of the legal health record. It is not the complete legal health record.[facility]
--- OUTSIDE RECORDS SUMMARY | 2025-07-22 13:25 | XMS_ITS | Encounter Summary ---
Author Organization [facility] Address [address] [place] [address] Phone Care Team Providers Care Concrete Paver Name Role Phone Flex Cazares DO Primary Care Provider [phone] Flex Cazares DO Unavailable Reason for Referral * Physical Therapy (Routine) - Closed Specialty Diagnoses / Procedures Referred By Mk almonte Referred To Contact Physical Therapy Diagnoses Encounter for rehabilitation Melissa Hart MD Phone: tel: fax: mailto:[email or web address] [address] [address] Phone: tel: Referral ID Status Reason Start Date Expiration Date Visits Re quested Visits Authorized [id number] Closed 09/12/2018 07/02/2019 10 10 Encounter Details Date Type Department Care Team (Latest Contact Info) Description 09/12/2018 Transcribe Orders [facility] Services [address] [place] [address] Melissa Hart MD [address] [place] [address] [address] [place] [phone] [email or web address] Encounter for rehabilitation (Primary Dx) Social [...] Info) Description 02/10/2025 Procedure Pass [facility] [address] [place] [address] 07/30/2025 2:30 PM EDT Appointment [facility] [address] [place] [address] Mar Maher PA-C [address] [place] [address] 08/11/2025 9:40 AM EDT Office Visit [facility] [address] [place] [address] 3rd Floor, [address] [place] [address] Thai Lugo MD [address] [place] [address], [address] [address] [email or web address] Scheduled Referrals Name Type Priority Associated Diagnoses Orde r Schedule Ambulatory referral to [facility] Physical Therapy Outpatient Referral Routine Encounter for rehabilitation Ordered: 09/12/2018 documented as of this encounter Visit Diagnoses Diagnosis Encounter for rehabilitation- Primary documented in this encounter Care Teams Concrete Paver Relationship Specialty Start Date End Date Flex Cazares DO PCP - General Internal Medicine 09/19/17 Flex Cazares DO [address] [place] [address] [place] [address] Insurance Assigned Provider 02/10/18 10/19/19 documented as of this encounter Additional Source Comments The information contained in this document represents components of the legal health record. It is not the complete legal health record.[facility]
--- OUTSIDE RECORDS SUMMARY | 2025-07-22 13:25 | XMS_ITS | Clinical Summary ---
Author Organization [facility] Address [address] [place] [id number] Phone Care Team Providers Care Motor Expert Name Role Phone Devika Mccloud DO Primary Care Provider [phone] Allergies Active Allergy Reactions Criticality Noted Date Comments Dulaglutide Nausea Only Medium 09/22/2022 Medications LANTUS SOLOSTAR U-100 INSULIN 100 unit/mL (3 mL) InPn injection pen Inject 30 Units under the skin nightly at bedtime. 10/21/20 19 Active buPROPion (WELLBUTRIN XL) 300 MG ER 24 hr tablet Take 300 mg by mouth every morning. 09/11/20 19 Active DULoxetine (CYMBALTA) 60 MG capsule Take 60 mg by mouth daily. 09/23/20 19 Active tamsulosin (FLOMAX) 0.4 mg Cap Take 0.4 mg by mouth daily. 11/01/20 19 Active metFORMIN (GLUCOPHAGE) 1000 MG tablet Take 1,000 mg by mouth 2 (two) times a day with meals. 09/11/20 19 Active tadalafiL (CIALIS) 5 MG tablet tadalafil 5 mg tablet Take 1 tablet by mouth daily Active albuterol 90 mcg/actuation inhaler ProAir HFA 90 mcg/actuation aerosol inhaler Inhale 2 puffs every 4-6 hours by inhalation route. Active aspirin 81 MG EC tablet Take 1 tablet (81 mg total) by mouth daily. 90 tablet 3 09/22/20 Active therapeutic multivitamin tablet Take 1 tablet by mouth daily. Active ipratropium (ATROVENT) 21 mcg (0.03 %) nasal spray 1 spray by Nasal route as needed. Active acetaminophen (TYLENOL) 500 MG tablet acetaminophen 500 mg tablet TAKE 2 TABLETS BY MOUTH THREE TIMES DAILY NEEDED FOR MILD PAIN Active busPIRone (BUSPAR) 10 MG tablet Take 10 mg by mouth daily. 09/19/20 22 Active JARDIANCE 10 mg tablet Take 10 mg by mouth daily. 09/20/20 23 Active omeprazole (PRILOSEC) 20 MG capsule Take 20 mg by mouth daily. Active methylcellulose (CITRUCEL) 500 mg Tab Take 1 g by mouth 2 (two) times a day. 2 tabs in AM and 1 PM Active FREESTYLE LITE Strp strips USE DIRECTED EVERY DAY 11/05/20 23 Active atorvastatin (LIPITOR) 80 MG tabletIndication s:Atherosclerosi s of [place] coronary artery of [place] heart with unstable angina pectoris TAKE 1 TABLET(80 MG) BY MOUTH DAILY 90 tablet 3 08/26/20 24 Active meloxicam (MOBIC) 15 MG tablet Take 1 tablet by mouth every morning. 11/08/20 24 Active MAGNESIUM GLYCINATE-MAG OXIDE ORAL Take 250 mg by mouth 2 (two) times a day. Active carvedilol (COREG) 6.25 MG tabletIndication s:Essential hypertension TAKE 1 TABLET(6.25 MG) BY MOUTH TWICE DAILY WITH MEALS 180 tablet 3 01/28/20 25 Active Active Problems Problem Noted Date Diagnosed Date Aortic root dilatation 02/10/2025 Assessment & Plan (02/10/2025 1:24 PM EDT): Previous echo 01/2023 shows aortic root is dilated 42 mm. Aortic root size was larger on this study. We will repeat echo prior to his next 6-month follow-up as has not been checked in about 2 years. S/P laparoscopic cholecystectomy 12/27/2023 Chest pain 09/22/2022 Assessment & Plan (09/22/2022 2:43 PM EST): Has h/o CAD with stents to LAD. Will get nuclear stress test scheduled. Cont asa/ carvedilol. Should continue his statin as well we will get an echocardiogram for LV wall motion abnormality. History of coronary angioplasty with insertion o f stent 09/22/2022 Assessment & Plan (02/10/2025 1:15 PM EDT): Hx CAD with STEMI in 2018 s/p KELSIE to proximal/mid LAD. Nuclear stress test 11/2022 showed no evidence of ischemia. He continues to deny any symptoms concerning for angina. Continue aspirin lifelong. Continue medical therapy with statin, beta-alvin. Continue to optimize cardiovascular risk factors. See below for exercise discussion. Follow-up in 6 months. Assessment & Plan (09/22/2022 2:44 PM EST): Patient has history of LAD stenosis and stent. He has done well since then except this episode of chest pain which landed him in the emergency room but he ruled out for IA we will go ahead and do a nuclear stress test time he should continue his aspirin statin and beta-alvin STEMI (ST elevation myocardial infarction) 09/22 BERTRAND (obstructive sleep apnea) 09/22/2020 Essential hypertension 09/22/2020 Assessment & Plan (02/10/2025 1:17 PM EDT): Blood pressure very well-controlled on carvedilol 6.25 mg twice daily which patient is tolerating well. Continue same. We discussed lifestyle modifications and specifically lack of exercise in detail. He states he has not been using his gym membership. Recommended patient try to start exercising for goal of 30 minutes daily. He seems open to this. Follow-up in 6 months. Continue to address. Assessment & Plan (09/22/2022 2:35 PM EST): He is on carvedilol. He is off losartan. His BP is well controlled at home. Assessment & Plan (09/22/2021 3:21 PM EST): Blood pressure is well controlled today at 128/78. His medications include losartan 25 mg daily, carvedilol 3.125 mg daily he will remain on this medication without change. He does not exercise regularly and will need to work on improving his diet to lose weight. He is also asked to follow a low-sodium diet. Hyperlipidemia 09/22/2020 Assessment & Plan (02/10/2025 1:20 PM EDT): LDL 20, at goal on atorvastatin 80 mg daily. LFTs reviewed and acceptable. Lifestyle modifications ongoing. Assessment & Plan (09/22/2021 3:22 PM EST): Continue atorvastatin 80 mg daily. Lipid panel will be drawn by his PCP. It would be helpful if those labs would be sent to our office so we could review them. Atherosclerosis of q[place] co ronary artery of q[place] heart with unstable angina pectoris 11/07/2019 Assessment & Plan (09/22/2021 3:21 PM EST): He has coronary artery disease with having a STEMI in 2019 with a drug-eluting stent to proximal/mid LAD. His medications include aspirin 81 mg daily which she should remain on for life as well as carvedilol 3.125 mg twice daily, atorvastatin 80 mg daily, losartan 25 mg daily. His lipid panel is followed by his PCP and he will be going to see his PCP within the next couple of weeks and states that this will be drawn then. Assessment & Plan (11/07/2019 1:42 PM EST): He presented to [facility] with chest pain was found to have ST MANDI, he is status post 1 stent to the LAD. His catheterization was performed by Dr. Valencia. He is appropriately on dual antiplatelet therapy with Brilinta and he will continue on this for 1 year post stenting. He is tolerating high intensity statin therapy as well as metoprolol. He is denying any chest pain or exertional symptoms today. He will be starting cardiac rehab soon. Will need to optimize his risk factors. I have placed orders for a repeat lipid panel to be drawn in 3 months time. Cardiomyopathy 11/07/2019 Assessment & Plan (02/10/2025 1:18 PM EDT): History of ischemic cardiomyopathy with previous EF as low as 25%. Most recent echocardiogram is approximately 2 years old and EF was within normal limits 55 to 60%. We are repeating echo. Patient remains asymptomatic. Continue carvedilol. Assessment & Plan (09/22/2021 3:20 PM EST): His ejection fraction improved to 65%. He is having no symptoms for cardiomyopathy at this time. Assessment & Plan (11/07/2019 1:44 PM EST): He had an echocardiogram completed at [facility] which showed reduced ejection fraction of 25 to 30%. He is tolerating his current medication regimen at this time, blood pressure is low normal in the office today. I do not have room to push his meds any further. This is likely ischemic cardiomyopathy. His blood pressure medication was transitioned from calcium channel alvin to ARB with losartan. I have placed orders for a repeat echo in 3 months time to reassess his ejection fraction. Uncontrolled type 2 diabetes mellitus with hyper glycemia 11/07/2019 Assessment & Plan (02/10/2025 1:23 PM EDT): A1c 9, much above goal of less than 7. Reiterated this goal and lifestyle modifications/medication compliance today as well as cardiac impact. Continue to follow-up with his DM provider. Assessment & Plan (11/07/2019 1:45 PM EST): History of diabetes with a recent A1c of greater than 10. He was seen by endocrinology while at [facility]. He remains on oral hypoglycemics and Lantus at night. He has been working on trying to improve his blood sugars, goal A1c for him should be less than 6. Could consider starting Trulicity given his cardiac risk factors. Resolved Problems Problem Noted Date Diagnosed Date Resolved Date Biliary colic 11/07/2023 12/27/2023 Calculus of gallbladder with out cholecystitis without obstruction 08/26/2022 12/27/2023 Assessment & Plan (08/26/2022 10:06 AM EDT): This is a 67-year-old gentleman with a known history of gallstones who was seen in the emergency department for lower abdominal pain that resolved on its own. He has had no further episodes of abdominal pain. His lower abdominal pain is uncharacteristic for pain from the gallbladder. Patient does not wish to have any surgical intervention at this point. I have recommended continued observation and if he starts to have upper abdominal pain or pain with fatty foods that he should return to see me. The patient will continue to follow-up with his primary care doctor and follow-up with me on as-needed basis. There is no indication for any surgical intervention at this time. I spent 24 minutes with this patient which included documentation. Family History Medical History Relation Comments Heart attack Father Parkinson's disease Mother Irritable bowel syndrome Sister 1 Transient ischemic attack Sister 2 Relation Status Comments Father Mother Sister 1 Alive Sister 2 Alive Social History Tobacco Use Types Packs/Day Years Used Date Smoking Tobacco: Light Smoker Cigars Smokeless Tobacco: Never Tobacco Cessation:Ready to Q uit: Not Asked; Counseling Given: Not Answered Comments:Rarely ~3 per year Alcohol Use Standard [...] Orientation Straight 09/18/2022 11 :21 AM EST Last Filed Vital Signs Vital Sign Reading Time Taken Comments Blood Pressure 108/68 02/10/2025 12:52 PM EDT Pulse 76 02/10/2025 12:52 PM EDT Temperature 36.3 C (97.3 F) 11/20/2024 11:44 AM EST Respiratory Rate 20 11/20/2024 12:04 PM EST Oxygen Saturation 95% 02/10/2025 12:52 PM EDT Inhaled Oxygen Concentration - - Weight 100.7 kg (222 lb) 02/10/2025 12:52 PM EDT Height 180.3 cm (5' 11 ) 02/10/2025 12:52 PM EDT Body Mass Index 30.96 02/10/2025 12:52 PM EDT Plan of Treatment Upcoming Encounters Date Type Department Care Team (Late st Contact Info) Description 02/10/2025 Procedure Pass Echo Lab [address] [place] [address] 07/30/2025 2:30 PM EDT Appointment Echo Lab [address] [place] [address] Mar Maher PA-C [address] [place] [id number] 08/11/2025 9:40 AM EDT Office Visit [facility] [address] [place] [address] [address]rd Floor, [address] [place] [address] Thai Lugo MD [address], [address] [place] [address] [email or web address] Health Maintenance Due Date Last Done Comments DEPRESSION SCREENING 1967 COLOGUARD 2000 FIT TEST 2000 FOBT 2000 SIGMOIDOSCOPY 2000 VIRTUAL COLONOSCOPY 2000 DIABETIC EYE EXAM 11/07/2019 PNEUMOCOCCAL VACCINES (50+ years) (2 of 2 - PPSV23) 10/28/2020 09/02/2020 URINE MICROALBUMIN/CREATININE RATIO 2021 2020, 10/30/2018 HEMOGLOBIN A1C 01/30/2025 11/01/2024, 05/0 06/2020, 10/30/2018 INFLUENZA VACCINE (#1) 2025 , 10/13/2023, 09/03/2022, Additional history exists COVID-19 VACCINE ( season) 2025 07/10/2024, 08/07/2023, 08/15/2022, Additional history exists BLOOD PRESSURE 08/12/2025 02/10/2025 CREATININE LEVEL 11/01/2025 11/01/2024, , 03/18/2023, Additional history exists SMOKING Hx and SMOKELESS TOBACCO SCREENING 02/10/2026 02/10/2025 Adult Td,Tdap Booster 09/23/2030 09/23/2020, 020 COLONOSCOPY 11/20/2034 11/20/2024, 03/13, 12/08/2020 COLORECTAL CANCER SCREENING 11/20/2034 HEPATITIS C SCREENING Completed 10/30/2018 ZOSTER VACCINES Completed 01/27/2021, 11/13, 09/23/2020, Additional history exists RSV VACCINE Completed 10/13/2023 ABDOMINAL AORTIC ANEURYSM (AAA) SCREENING Completed 10/28/2023, 08/22/2022 HEPATITIS A VACCINES Aged Out No long er eligible based on patient's age to complete this topic HIB VACCINES Aged Out No longer eligi ble based on patient's age to complete this topic MENINGOCOCCAL VACCINES (ACWY) Aged Out No longer eligible based on patient's age to complete this topic MENINGOCOCCAL VACCINES (B) Aged Out N o longer eligible based on patient's age to complete this topic Medical Devices Implanted Type Area Business Services Officer Device Identifier Shelf Expiration Date Model / Serial / Lot Stent Stent Heart Bilateral Hands Procedures Procedure Name Priority Date/Time Associated Diagnosis Comments ENDOSCOPY, COLON 11/20/2024 11:2 2 AM EST HEMOGLOBIN A1C Routine 11/01/2024 1:46 PM EST 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 resolved after treatment, unspecified whether usp insulin use COMPREHENSIVE METABOLIC PANEL Routine 11/01/2024 1:46 PM EST 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 resolved after treatment, unspecified whether usp insulin use CT ABDOMEN/PELVIS WITH CONTRAST Routine 10/28/2023 9:10 AM EST MICROALBUMIN/CREATININ E RATIO, RANDOM URINE Routine 2020 10:26 AM EDT 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 resolved after treatment, with long-term current use of insulin from Last 3 Months or Most Recently Relevant to Health Maintenance Results * ENDOSCOPY, COLON (11/20/2024 11:22 AM EST) Narrative Transcriptions Jimbo Gaona MD - 11/20/2024 11:22 AM EST [facility] Patient Name: Sean Cárdenas Attending MD:: JIMBO GAONA MD, , Procedure Date: 11/20/2024 11:22 AM Date of : 1955 Age: 69 Admit Type: Outpatient Gender: Male Room: [place] [address] Referring MD: DEVIKA MCCLOUD DO Exam Type: Colonoscopy Indications: High risk colon cancer surveillance: Personalhistory of colonic polyps Medications: Monitored Anesthesia Care Procedure: Informed consent was obtained from the patientafter discussion of the indications, limitations, alternatives, benefits, and risks of the procedure. Risks specifically discussed include but are not limited to medication reactions, missed lesions, bleeding, perforation, or the need for emergent surgery. Throughout the procedure, the patient's blood pressure, pulse, end-tidal CO2, and oxygensaturations were monitored continuously. The Olympus adult variable colonoscope CF-[id number] #2 was introduced through the anus and advanced to the cecum, identified by appendiceal orifice andileocecal valve. The colonoscopy was performed without difficulty. The patient tolerated the procedurewell. The quality of the bowel preparation was excellent. The quality of the bowel preparation was evaluated using the BBPS (Arthur Bowel Preparation Scale)with scores of: Right Colon = 3, Transverse Colon = 3and Left Colon = 3 (entire mucosa seen well with no residual staining, small fragments of stool oropaque liquid). The total BBPS score equals 9. Anatomical landmarks were photographed. Complications: No immediate complications. Estimated blood loss: Minimal. Findings: The perianal and digital rectal examinations were normal. Three sessile polyps were found in the ascending colon. The polyps were 4 to 5 mm in size. Thesepolyps were removed with a cold snare. Resection and retrieval were complete. Internal hemorrhoids were found duringretroflexion. The hemorrhoids were mild. The exam was otherwise normal throughout theexamined colon. Impression: - Three 4 to 5 mm polyps in the ascending colon, removed with a cold snare. Resected andretrieved. - Internal hemorrhoids. Recommendation: - Discharge patient to home. - Await pathology results. - Repeat colonoscopy in 2 years for surveillance. JIMBO GAONA MD, 11/20/2024 11:47:02 AM This report has been signed electronically. Number of Addenda: 0 Note Initiated On: 11/20/2024 11:22 AM Procedure Code(s): --- Professional --- 17482, Colonoscopy, flexible; with removal of tumor(s), polyp(s), or other lesion(s) by snare technique --- Technical --- 61874, Colonoscopy, flexible; with removal of tumor(s), polyp(s), or other lesion(s) by snare technique Diagnosis Code(s): --- Professional --- Z86.010, Personal history of colonic polyps D12.2, Benign neoplasm of ascending colon K64.8, Other hemorrhoids --- Technical --- Z86.010, Personal history of colonic polyps D12.2, Benign neoplasm of ascending colon K64.8, Other hemorrhoids CPT copyright 2021 [employer]. All rights reserved. The codes documented in this report are preliminary and upon health promotion officer reviewmay be revised to meet current compliance requirements. Procedure Date: 11/20/2024 11:22:[address] [place] [address] us Devika Mccloud DO GI PROCEDURE ORDERABLES Final Re sult * (ABNORMAL) Comprehensive metabolic panel (11/01/2024 1:46 PM EST) SODIUM 138 133 - 146 mmol/L [facility] POTASSIUM 3.6 3.3 - 5.1 mmol/L [facility] CHLORIDE 100 96 - 108 mmol/L [facility] CO2 24 21 - 35 mmol/L [facility] BUN 10 6 - 19 mg/dL [facility] CREATININE 0.80 0.5 - 1.5 mg/dL [facility] GLUCOSE 130(H) 70 - 99 mg/dL [facility] ALBUMIN 4.3 3.9 - 4.8 g/dL [facility] TOTAL PROTEIN 6.4(L) 6.5 - 8.0 g/dL [facility] CALCIUM 9.2 8.4 - 10.3 mg/dL [facility] ALKALINE PHOSPHATASE 119(H) 39 - 117 U/L [facility] TOTAL BILIRUBIN 0.9 0.0 - 1.2 mg/dL [facility] AST 21 0 - 37 U/L [facility] ALT 13 0 - 40 U/L [facility] GLOBULIN 2.1 1 - 4.8 g/dL [facility] EGFR 96 >59 mL/min/1.7 3m2 [facility] Comment:Estimated glomerular filtration rate calculated using the CKD-EPI refit equation. ANION GAP 18 10 - 20 mmol/L [facility] Blood 11/01/2024 1:46 PM EST 11/01/2024 1:48 PM EST us Emely SEPULVEDA LAB BLOOD ORDERABLES Final Result [facility] [address] [place] [address] * (ABNORMAL) Hemoglobin A1c (11/01/2024 1:46 PM EST) HEMOGLOBIN A1C 9.0(H) 4.3 - 5.8 % [facility] Blood 11/01/2024 1:46 PM EST 11/01/2024 1:48 PM EST us Emely SEPULVEDA LAB BLOOD ORDERABLES Final Result Performing Organization Address City/State/[facility] Co de Phone Number [address] [address] * CT ABDOMEN/PELVIS WITH CONTRAST (10/28/2023 9:10 AM EST) Anatomical Region Laterality Modality Abdomen, Pelvis Computed Tomogra phy 10/28/2023 9:15 AM EST Impressions 10/28/2023 9:29 AM EST 1. Cholelithiasis with equivocal findings for acute cholecystitis. Right upper quadrant ultrasound can be performed if clinically indicated. 2. Otherwise, no acute abnormality in the abdomen or pelvis. Narrative 10/28/2023 9:[address] ABDOMEN/PELVIS WITH CONTRAST Referring clinician's provided indication for this examination in Epic: * LLQ abdominal pain TECHNIQUE: Multidetector-row CT of the abdomen and pelvis was performed after administration of intravenous contrast using tailored dose modulation techniques. Images were reconstructed in the axial, coronal, and sagittal planes. COMPARISON: CT ANGIO ABDOMEN/PELVIS WITH CONTRAST FINDINGS: Lower Chest: No consolidation or pleural effusions. Liver: No focal lesions. Biliary: Tiny stones in the gallbladder neck. Mild distention of gallbladder with trace pericholecystic fluid and stranding without wall thickening. Spleen: No splenomegaly or focal lesions. Pancreas: Normal. No masses or ductal dilatation. Adrenal Glands: Normal. No nodules. Kidneys/Ureters: Normal. No solid masses, stones, or hydronephrosis. Bowel: Normal appendix. Colonic diverticulosis without diverticulitis. Normal small bowel. Peritoneum/Retroperitoneum: No masses, pneumoperitoneum, or fluid. Lymph Nodes: No lymphadenopathy. Pelvic Organs/Bladder: No mass. Vessels: Aortic atherosclerosis. No aortic aneurysm. Bones/Soft Tissues: No significant abnormality. Procedure Note Noreen Eduardo MD - 10/28/2023 CT ABDOMEN/PELVIS WITH CONTRAST Referring clinician's provided indication for this examination in Epic: *LLQ abdominal pain TECHNIQUE: Multidetector-row CT of the abdomen and pelvis was performedafter administration of intravenous contrast using tailored dosemodulation techniques. Images were reconstructed in the axial, coronal,and sagittal planes. COMPARISON: CT ANGIO ABDOMEN/PELVIS WITH CONTRAST FINDINGS: Lower Chest: No consolidation or pleural effusions. Liver: No focal lesions. Biliary: Tiny stones in the gallbladder neck. Mild distention ofgallbladder with trace pericholecystic fluid and stranding without wallthickening. Spleen: No splenomegaly or focal lesions. Pancreas: Normal. No masses or ductal dilatation. Adrenal Glands: Normal. No nodules. Kidneys/Ureters: Normal. No solid masses, stones, or hydronephrosis. Bowel: Normal appendix. Colonic diverticulosis without diverticulitis.Normal small bowel. Peritoneum/Retroperitoneum: No masses, pneumoperitoneum, or fluid. Lymph Nodes: No lymphadenopathy. Pelvic Organs/Bladder: No mass. Vessels: Aortic atherosclerosis. No aortic aneurysm. Bones/Soft Tissues: No significant abnormality. IMPRESSION: 1. Cholelithiasis with equivocal findings for acute cholecystitis. Rightupper quadrant ultrasound can be performed if clinically indicated. 2. Otherwise, no acute abnormality in the abdomen or pelvis. us Lalo Coates MD IMG CT ABD/PELVIS Final Re sult * Microalbumin/creatinine ratio, random urine (2020 10:26 AM EDT) URINE MICROALBUMIN <1.2 0 - 2.3 mg/dL [facility] URINE CREATININE 87 mg/dL [facility]YCHOLOG[facility] MICROALB/CRE RATIO NOT CALCULATED 0 - 20 mg/g Cre [facility] Comment:due to Microalbumin <1.2 Urine (Urine) 2020 10: 26 AM EDT 2020 10:35 AM EDT us Devika A Bigda DO URINE ORDERABLES Final Result [facility] [address] [place] [address] from Last 3 Months or Most Recently Relevant to Health Maintenance Insurance MEDICARE PART A & B MEDICARE SUPPLEMENT MEDICARE PART A & B MEDICARE SUPPLEMENT MEDICARE PART A & B [facility] MEDICARE SUPPLEMENT MEDICARE PART A & [place] [address] [address] MEDICARE SUPPLEMENT MEDICARE PART A & B [facility] MEDICARE SUPPLEMENT MEDICARE PART A & B Member Subscriber Plan / Payer (Ef fective 2019-Present) Name:Sean Cárdenas Member ID:[id number] Relation to Subscriber:Self Name:Sean Cárdenas Subscriber ID:[id number] Payer ID:[id number] Group ID:Not on file Type:Medicare Address: [place] [address] MEDICARE SUPPLEMENT MEDICARE PART A & B [id number] [place] [address] MEDICARE SUPPLEMENT MEDICARE PART A & B Member Subscriber Plan / Payer (Ef fective 2019-Present) Name:Sean Cárdenas Member ID:[id number] Relation to Subscriber:Self Name:Sean Cárdenas Subscriber ID:[id number] Payer ID:[id number] Group ID:Not on file Type:Medicare Address: [place] [email or web address] MEDICARE SUPPLEMENT MEDICARE PART A & B [facility] MEDICARE SUPPLEMENT Advance Directives For more information, please contact: [phone] (9AM - 5PM [facility], Monday-Monday) * Full Code (Latest Code Status on File) Date Activated Date Inactivated Comments 12/14/2023 10:20 AM Question Answer Comments Code Status Confirmed With: Patient Care Teams Motor Expert Relationship Specialty Start Date End Date Devika Mccloud DO PCP - General Internal Medicine 09/19/17 Additional Source Comments The information contained in this document represents components of the legal health record. It is not the complete legal health record.[facility]
--- OUTSIDE RECORDS SUMMARY | 2025-07-22 13:25 | XMS_ITS | Encounter Summary ---
Author Organization [facility] Address [address] [place] [address] Phone Care Team Providers Care Staff Developer Name Role Phone Flex Cazares DO Primary Care Provider [phone] Flex Cazares DO Unavailable Reason for Referral * Physical Therapy (Routine) - Closed Specialty Diagnoses / Procedures Referred By Mk almonte Referred To Contact Physical Therapy Diagnoses Encounter for rehabilitation System, Provider Not In, [facility] [id number] [place] [address] Phone: tel: Referral ID Status Reason Start Date Expiration Date Visits Re quested Visits Authorized [id number] Closed 07/02/2018 07/02/2019 6 6 Encounter Details Date Type Department Care Team (Latest Contact Info) Description 06/14/2018 Transcribe Orders [facility] [address] [place] [address] Ricky Hale PA [address] [place] [address] Encounter for rehabilitation (Primary Dx) Social History [...] Upcoming Encounters Date Type Department Care Team ([facility] st Contact Info) Description 02/10/2025 Procedure Pass [facility] [address] [place] [address] 07/30/2025 2:30 PM EDT Appointment Echo Lab [address] [place] [address] Mar Maher PA-C [address] [place] [id number] 08/11/2025 9:40 AM EDT Office Visit [facility] [address] 3rd Floor, [address] [place] [address] Thai Lugo MD [address] [place] [address] documented as of this encounter Procedures Procedure Name Priority Date/Time Associated Diagnosis Comments AMB REFERRAL TO [facility] PHYSICAL THERAPY Routine 07/09/2018 4:15 PM EDT Encounter for rehabilitation documented in this encounter Results * Ambulatory referral to [facility] Physical Therapy (07/09/2018 4:15 PM EDT) us Provider Not In System PhD AMB [facility] REFERRALS Fin al Result documented in this encounter Visit Diagnoses Diagnosis Encounter for rehabilitation- Primary documented in this encounter Care Teams Staff Developer Relationship Specialty Start Date End Date Flex Cazares DO [email or web address] PCP - General Internal Medicine 09/19/17 Flex Cazares DO [address] [facility] [place] [address] [place] [address] [email or web address] Insurance Assigned Provider 02/10/18 10/19/19 documented as of this encounter Additional Source Comments The information contained in this document represents components of the legal health record. It is not the complete legal health record.[facility]
--- OUTSIDE RECORDS SUMMARY | 2025-07-22 13:25 | XMS_ITS | Encounter Summary ---
Author Organization [facility] Address [address] [place] [address] Phone Care Team Providers Care Developer Prover Upholstering Name Role Phone Flex Cazares DO Primary Care Provider [phone] Encounter Details Date Type Department Care Team (Late st Contact Info) Description 08/20/2024 Procedure Pass [facility] Endoscopy Admitting Dept Virtual Department [address] [place] [address] Social History Tobacco Use Types Packs/Day Years [...] Info) Description 02/10/2025 Procedure Pass Echo Lab [address] [place] [address] 07/30/2025 2:30 PM EDT Appointment Echo Lab [address] [place] [address] Mar Maher PA-C [address] [place] [address] 08/11/2025 9:40 AM EDT Office Visit [facility] [address] [place] [address] 3rd Floor, [address] [place] [address] Thai Lugo MD [address] [place] [address], [address] [address] [email or web address] documented as of this encounter Visit Diagnoses Not on filedocumented in this encounter Care Teams Developer Prover Upholst[employer] Relationship Specialty Start Date End Date Flex Cazares DO PCP - General Internal Medicine 09/19/17 documented as of this encounter Additional Source Comments The information contained in this document represents components of the legal health record. It is not the complete legal health record.[facility]
[2025-07-22 13:31] LABS: Hemoglobin A1C 375.4163 umol/L; Total Hemoglobin (HGBA1C) 4200.9131 umol/L
[2025-07-22 13:46] LABS: Alanine Aminotransferase 18 U/L (0-40); Albumin Level 4.6 g/dL (3.5-5.0); Alkaline Phosphatase 121 U/L (39-117); Anion Gap 15 (12-20); Aspartate Amino Transferase 31 U/L (5-37); Blood Urea Nitrogen 11 mg/dL (9-16); Calcium 9.5 mg/dL (8.4-10.2); Carbon Dioxide 28 mmol/L (22-29); Chloride 103 mmol/L (96-108); Cholesterol 110 mg/dL (<200); Estimated Glomerular Filt Rate > 60; HDL Cholesterol 39 mg/dL (>40); Potassium 4.7 mmol/L (3.3-5.1); Sodium 141 mmol/L (135-145); Total Protein 6.5 g/dL (6.5-8.0); Triglycerides 207 mg/dL (<150)
== END 2025-07-22 11:04 | disposition home or self-care (01) ==
LOC: HO.MANLDS 11:03
PROVIDERS: Visit Provider Physician Assistant
DX: E11.37X1 Type 2 diabetes mellitus with diabetic macular edema, resolved following treatment, right eye (principal)
CPT/HCPCS: 36415; 80053; 80061; 83036; 85025

== ENCOUNTER 2025-10-03 13:41 | Outpatient (REF) | payer MEDICARE, SELFPAY ==
--- OUTSIDE RECORDS SUMMARY | 2025-10-03 14:11 | XMS_ITS | Clinical Summary ---
Author Organization 175 [facility] Address [address] [place] [address] Phone Care Team Providers Care Aluminum Polisher Name Role Phone Flex Cazares Primary Care Provider [phone] Allergies Active Allergy Reactions Criticality Noted Date [...] mg total) by mouth daily. 9 Active MAGNESIUM GLYCINATE-MAG OXIDE ORAL Take 250 mg by mouth 2 times daily. 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 MRI [address] [place] [address] Shoulder pain, left; Nontraumatic complete tear of left rotator cuff Discharge Disposition: Home or Self Care 09/03/2025 2:30 PM EDT Office Visit Orthopedic Surgery [facility] 160 175 [facility] [address] [place] [phone] Flex Gonsalez MD Shoulder pain, left (Primary Dx); Nontraumatic complete tear of left rotator cuff from Last 3 Months Surgical History Surgery Date Site/Laterality Comments TONSILLECTOMY ADENOIDECTOMY, BILATERAL MYRINGOTOMY AND TUBES PROCEDURE: CT TONSILLECTOMY & ADENOIDECTOMY <AGE 12 HERNIA REPAIR PROCEDURE: REPAIR UMBILICAL HERNIA HAND SURGERY PROCEDURE: CT UNLISTED PROCEDURE HANDS/FINGERS FINGER SURGERY 11/13/2016 - 11/12/2017 Bilateral thumb, trapeziectomy w/ interpositonal arthroplasty PIP JOINT FUSION 08/29/2024 Right index finger Medical History Medical History Date Comments Diabetes mellitus type 2, co ntrolled, with complications ([facility] V24, [facility] V28) DX:Diabetes mellitus type 2, controlled, with complications ([facility]) Heart attack ([facility] V24, [facility] V28) 10/2019 DX:Heart attack (HCC) Essential hypertension DX:Essent ial hypertension Depressive disorder DX:Depressiv e disorder Congestive heart failure (CH F) ([facility] V24, [facility] V28) DX:Congestive heart failure (CHF) ([facility]) Hyperlipidemia DX:Hyperlipidemi a Social History Tobacco Use [...] Health Maintenance Due Date Last Done Comments Colorectal Cancer Screening: Colonoscopy 1955 Diabetes: Annual Foot Exam 1965 Diabetes: Annual Retina Eye Exam 1965 Abdominal Aortic Aneurysm (AAA) Screen 10/23/2022 Falls Risk Assessment 10/23/2022 Hepatitis C Screening 10/23/2022 Medicare Annual Wellness Visit 10/23/2022 Social Influencers of Health Screening 10/23/2022 Diabetes: Annual Urine Albumin-Creatinine Ratio (uACR) 10/08/2024 2020 Diabetes: Blood Sugar Control Test (HGBA1C) 10/08/2024 Depression Screening 11/13/2024 Diabetes: Annual GFR (Glomerular Filtration Rate) 11/01/2025 11/01/2024, 2020 Hypertension/CHF/CAD Annual BMP Blood Test 11/01/2025 11/01/2024, 2020 COVID-19 Vaccine ( season) 2026 07/24/2025, 07/10/2024, 08/07/2023, Additional history exists Cholesterol Screening (Lipid Panel) 11/01/2029 11/01/2024 DTaP,Tdap,and Td Vaccines (2 - Td or Tdap) 09/23/2030 09/23/2020 Zoster Vaccines Completed 01/27/2021, 11/13, 09/23/2020 RSV Immunization Adult Patients Completed 10/13/2023 Influenza Vaccine Completed 07/17/2025, , 10/13/2023, Additional history exists Pneumococcal Vaccine: 50+ Years Completed 07/24/2025, 09/02/2020 HIB Vaccines Aged Out No longer eligi [...] on patient's age to complete this topic Procedures Procedure Name Priority Date/Time Associated Diagnosis Comments MR SHOULDER WO CONTRAST LEFT Routine 09/12/2025 7:06 PM EDT Shoulder pain, left Nontraumatic complete tear of left rotator cuff XR SHOULDER 2+ VIEWS LEFT Routine 09/03/2025 2:33 PM EDT Shoulder pain, left from Last 3 Months Results * MR Shoulder wo Contrast Left (09/12/2025 7:06 PM EDT) Anatomical Region Laterality Modality Upper Extremities, Shoulder Left Magn etic Resonance 09/13/2025 5:22 AM EDT Impressions 09/13/2025 5:34 AM EDT 1. Full-thickness tear at the junction of the posterior fibers of the supraspinatus tendon and anterior fibers of the infraspinatus tendon with underlying tendinosis; slightly progressed from 2021. 2. Moderate to severe AC joint arthropathy with subacromial spur 3. Findings which can be seen in the clinical setting of adhesive capsulitis 4. Moderate degenerative changes of the left shoulder 1. -------- FINAL REPORT -------- Dictated By: Klaudia Cary Dictated Date: 09/13/2025 05:22 ET Assigned Physician: Klaudia aCry Reviewed and Electronically Signed By: Klaudia Cary Signed Date: 09/13/2025 05:34 ET Workstation ID: [id number] Transcribed By: Self Edit Transcribed Date: 09/13/2025 05:22 ET Narrative 09/13/2025 5:34 AM EDT INDICATION: rotator cuff tear worsening left shoulder pain. History of rotator cuff tear. COMPARISON: December 2021 TECHNIQUE: Multiplanar, multisequence MRI examination was performed of the left shoulder without intravenous contrast. FINDINGS: Rotator Cuff: Attenuation and fluid signal at the junction of the posterior fibers of the supraspinatus tendon and anterior fibers of the infraspinatus tendon measuring approximately 0.7 x 2.2 cm; slightly progressed from 2021 in keeping with full-thickness tearing with underlying supraspinatus and infraspinatus tendinosis. Fluid signal along the interstitial fibers of the infraspinatus tendon which may represent interstitial, partial thickness tearing. Subscapularis tendinosis. No significant muscle volume loss. Biceps Tendon: Intra-articular biceps tendinosis Labrum: Degenerative signal Bone/Cartilage: Moderate cartilage thinning of the glenoid and humeral head cartilage; overall similar to prior. Humeral head osteophyte formation. Glenoid osteophyte formation. Heterogeneous bone marrow signal with cystic change along the proximal humeral diaphysis. AC Joint: Moderate to severe AC joint arthropathy with a subacromial spur Miscellaneous:Subacromial/subdeltoid bursal fluid. Left shoulder joint fluid with fluid signal extending into the proximal biceps tendon sheath. Nonspecific thickening of the inferior axillary pouch and blurring of the rotator fat interval which can be seen in the clinical setting of adhesive capsulitis. Procedure Note Klaudia Cary MD - 09/13/2025 INDICATION: rotator cuff tear worsening left shoulder pain. History ofrotator cuff tear. COMPARISON: December 2021 TECHNIQUE: Multiplanar, multisequence MRI examination was performed ofthe left shoulder without intravenous contrast. FINDINGS: Rotator Cuff: Attenuation and fluid signal at the junction of theposterior fibers of the supraspinatus tendon and anterior fibers of theinfraspinatus tendon measuring approximately 0.7 x 2.2 cm; slightlyprogressed from 2021 in keeping with full-thickness tearing withunderlying supraspinatus and infraspinatus tendinosis. Fluid signal alongthe interstitial fibers of the infraspinatus tendon which may representinterstitial, partial thickness tearing. Subscapularis tendinosis. Nosignificant muscle volume loss. Biceps Tendon: Intra-articular biceps tendinosis Labrum: Degenerative signal Bone/Cartilage: Moderate cartilage thinning of the glenoid and humeralhead cartilage; overall similar to prior. Humeral head osteophyteformation. Glenoid osteophyte formation. Heterogeneous bone marrowsignal with cystic change along the proximal humeral diaphysis. AC Joint: Moderate to severe AC joint arthropathy with a subacromialspur Miscellaneous:Subacromial/subdeltoid bursal fluid. Left shoulder jointfluid with fluid signal extending into the proximal biceps tendon sheath.Nonspecific thickening of the inferior axillary pouch and blurring of therotator fat interval which can be seen in the clinical setting of adhesivecapsulitis. IMPRESSION: 1. Full-thickness tear at the junction of the posterior fibers of thesupraspinatus tendon and anterior fibers of the infraspinatus tendon withunderlying tendinosis; slightly progressed from 2021. 2. Moderate to severe AC joint arthropathy with subacromial spur 3. Findings which can be seen in the clinical setting of adhesivecapsulitis 4. Moderate degenerative changes of the left shoulder 1. -------- FINAL REPORT -------- Dictated By: Klaudia Cary Dictated Date: 09/13/2025 05:22 ET Assigned Physician: Klaudia Cary Reviewed and Electronically Signed By: Klaudia Cary Signed Date: 09/13/2025 05:34 ET Workstation ID: [id number] Transcribed By: Self Edit Transcribed Date: 09/13/2025 05:22 ET Flex Gonsalez MD [facility] MRI PROCEDURES Final Resul t * XR Shoulder 2+ Views Left (09/03/2025 2:33 PM EDT) Anatomical Region Laterality Modality Upper Extremities, Shoulder Left Comp uted Radiography Narrative 09/03/2025 2:45 PM EDT X-rays September 03, 2025. AP, Grashey, Y lateral, axillary views of the left shoulder. No significant DJD of the glenohumeral joint. No significant superior migration. No acute osseous abnormalities noted. Flex Gonsalez MD [facility] XR PROCEDURES Final Result from Last 3 Months Insurance MEDICARE Care Teams Aluminum Polisher Relationship Specialty Start Date End Date Flex Cazares DO [address] [facility] [address] [place], [place] PCP - General Internal Medicine 09/20/24
--- OUTSIDE RECORDS SUMMARY | 2025-10-03 14:11 | XMS_ITS | Encounter Summary ---
Author Organization [facility] Address [address] [facility] [address] [place] [address] Phone Care Team Providers Care Broomcorn Press Feeder Name Role Phone Flex Cazares DO Primary Care Provider [phone] Encounter Details Date Type Department Care Team (Late st Contact Info) Description 09/22/2022 Procedure Pass Echo Lab [address] [place] [address] Social History Tobacco Use Types Packs/Day Years [...] Care Team (Late st Contact Info) Description 10/27/2025 9:15 AM EST Office Visit [facility] [address] [place] [address] 3rd Floor, [address] [place], [place] [phone] Phil Salas DO [address] [facility] [address] [place] [address] [email or web address] documented as of this encounter Visit Diagnoses Not on filedocumented in this encounter Care Teams Broomcorn Press Feeder Relationship Specialty Start Date End Date Flex Cazares DO [email or web address] PCP - General Internal Medicine 09/19/17 documented as of this encounter Additional Source Comments The information contained in this document represents components of the legal health record. It is not the complete legal health record.[facility]
--- OUTSIDE RECORDS SUMMARY | 2025-10-03 14:11 | XMS_ITS | Clinical Summary ---
Author Organization [facility] Address [address] [place] [address] Care Team Providers Care Business Process Engineer Name Role Phone Sienna Solis MD Primary Care Provider [phone] Social History Tobacco Use Types Packs/Day Years [...] - 2023-2 5 season) 2025 RSV Vaccine 50 years and old er and Patients (1 - 1-dose 75+ series) 2030 Hepatitis B Vaccines Aged Out No long er eligible based on patient's age to complete this topic Care Teams Business Process Engineer Relationship Specialty Start Date End Date Sienna Solis MD [address] [place] [address] PCP - General
--- OUTSIDE RECORDS SUMMARY | 2025-10-03 14:11 | XMS_ITS | Encounter Summary ---
Author Organization [facility] Address [address] [place] [address] Phone Care Team Providers Care Psychiatry Teacher Name Role Phone GaylachaiFlex DO Primary Care Provider [phone] Encounter Details Date Type Department Care Team (Late st Contact Info) Description 08/22/2022 Procedure Pass [facility], Ct Scan - [address] [address] Social History Tobacco Use Types Packs/Day Years [...] 2:45 AM EDT Yulia Rey RN * [place] Suicide Severity Rating Scale (Screener/Recent Self-Report) Question [...] Description 10/27/2025 9:15 AM EST Office Visit [facility] [address] [facility] 3rd Floor, [phone] Phil Salas DO [address] [facility] [address] [place] [phone] [email or web address] documented as of this encounter Visit Diagnoses Not on filedocumented in this encounter Care Teams Psychiatry Teacher Relationship Specialty Start Date End Date GaylaFlex paula DO [place] PCP - General Internal Medicine 09/19/17 documented as of this encounter Additional Source Comments The information contained in this document represents components of the legal health record. It is not the complete legal health record.[facility]
--- OUTSIDE RECORDS SUMMARY | 2025-10-03 14:12 | XMS_ITS | Encounter Summary ---
Author Organization [facility] Address [address] [place] [address] Care Team Providers Care Line Director Name Role Phone GaylachaiFlex DO Primary Care Provider [phone] Encounter Details Date Type Department Care Team (Late st Contact Info) Description 09/24/2025 Results Follow-Up Orthopedic Surgery - [place] 160 [address] [facility] [address] [place] [phone] Lisha Simmons PA [address] [facility] [address] [place] [address] Social History Tobacco Use Types Packs/Day Years Used Date Smoking Tobacco: Every Day Smokeless Tobacco: Never Alcohol Use Standard Drinks/Week Comments Yes 0 (1 standard drink = 0.6 oz pur e alcohol) Sex and Gender Information Value Date Recorded Sex Assigned at Not on file Legal Sex Male 6:41 PM EST Gender Identity Not on file Sexual Orientation Not on file documented as of this encounter Progress Notes * DERICK Drew - 09/24/2025 4:26 PM EST Chart reviewed. Patient called. Patient HgA1C is currently 9.0 as noted in care everywhere. Patient is eager to proceeding with surgery, but recognizes the importance of lowering A1c. Plan: Patient will continue to work with PCP to lower A1C, with a goal of less than 8. Once A1C s less than 8 he will call our office and set up a pre-op appointment with Dr Gonsalez to discuss surgery. Patient in agreement with plan All questions answered DERICK Drew documented in this encounter Plan of Treatment Not on file documented as of this encounter Visit Diagnoses Not on filedocumented in this encounter Care Teams Line Director Relationship Specialty Start Date End Date Flex Cazares DO [address] [facility] [address] [place], [place] PCP - General Internal Medicine 09/20/24 documented as of this encounter
--- OUTSIDE RECORDS SUMMARY | 2025-10-03 14:12 | XMS_ITS | Continuity of Care Document ---
Author Organization [facility] Internal Medicine, [facility] Address [address] [place] [address] Assessment No assessment recorded. Plan of Treatment Reminders Order Date Submit Date Provider Last Modified By Organization Details Last Modified Time Details Appointments ANNUAL EXAM 2024 11:45A M DERICK CHAPMAN Not available Not available Not available Lab None recorded. Referral audiologi st referral 2024 025 [email or web address] 10 [facility], [address], [place], [address], 07/25/2025 08:41:56 Procedures None recorded. Surgeries None recorded. Imaging XR, foot, 3 or more view 2024 025 [facility] Central Scheduling (Not Breast), [address] [place], [address], 08/05/2025 08:29:16 Medication Orders None recorded. Patient TargetsNo targets recorded. Patient InstructionsNo instructions recorded. 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 ed conductive and sensorineural hearing loss, bilateral bilateral hearing loss, has hearing aids, hearing is worsening Referring Physician: Emely Barrett, Internal Medicine, Encounter Date: 07/22/2025 Results Created Date Observation Date Name Description Value Unit Range Abnormal Flag Note LastModifiedBy Organization Detail LastModifiedTime 08/11/2008/08/2025 XR, foot, 3 or more view No observ ation record ed. [email or web address] [facility] [address], [place], [address], 08/12/2025 08:39:09 09/29/20 25 09/25/2025 US, echo ardio gram No observ ation record ed. [facility] [address], [place], [address], 09/29/2025 13:24:25 Result Notes None recorded. Problems Name Problem SNOMED Code Status Onset Date Resolution Date Notes Provider Name and Address Organization Details Recorded Time Depressiv e disorder 07886177 Active 2017 Not Available [facility] 2 19:12:58 Asthma 451279956 Active 2017 Not Available [facility] 2 19:12:58 History of male erectile disorder 964747868 Active 2017 Not Available [facility] 2 19:12:58 Hyperchol esterolem ia 05485420 Active 2017 Not Available [facility] 2 19:12:58 Arthritis 1057290 Active 2017 Not Available [facility] 2 19:12:58 Essential hypertens ion 72089166 Active 2017 Not Available [facility] 2 19:12:58 Umbilical hernia 531063159 Active 2017 Not Available [facility] 2 19:12:58 Obstructi ve sleep apnea syndrome 73667842 Active 2017 Not Available [facility] 2 19:12:58 Does use hearing aid 861294458 Active 2017 Not Available [facility] 2 19:12:58 Labyrinth itis 47953504 Active 2017 Not Available [facility] 2 19:12:58 Dry eyes 930375708 Active 2017 Not Available [facility] 2 19:12:58 Chronic back pain 367998591 Active 2017 Not Available [facility] 2 19:12:58 Irritable bowel syndrome 82154641 Active 2017 Not Available [facility] 2 19:12:58 Type 2 diabetes mellitus 88791190 Active 2018 Not Available [facility] 2 19:12:58 Cough 01348913 Active 2021 Not Available [facility] 2 19:12:58 Hypotensi ve episode 78574233 Active 2021 Not Available [facility] 2 19:12:58 Anxiety 40210432 Active 2021 Not Available [facility] 2 19:12:58 Pain in left thumb 412557629748 9100 Active 2021 Not Available [facility] 2 19:12:58 COVID-19 855102707 Active 2022 DERICK CHAPMAN [address] [place], [address], [facility] 3 09:27:15 Myocardia l infarctio n 87160353 Active 2022 DERICK CHAPMAN [address] [place], [address], [facility] 3 10:21:17 Diabetes mellitus without complicat ion 493384959 Active 2022 DERICK CHAPMAN [address] [place], [address], [facility] 3 10:21:29 Exacerbat ion of moderate persisten t asthma 197415470 Active 2023 DERICK CHAPMAN [address] [place], [address], [facility] 4 14:36:52 Wheezing 14442388 Active 2023 DERICK CHAPMAN [address] [place], [address], [facility] 4 15:57:30 Acute bronchiti s 47579689 Active 2023 DERICK CHAPMAN [address] [place], [address], [facility] 4 16:54:19 Disorder due to type 2 diabetes mellitus 281150523 Active 2023 DERICK CHAPMAN [address] [place], [address], [facility] 4 13:46:57 Pain of left hip joint 711727760015 100 Active 2023 DERICK CHAPMAN [address] [place], [address], [facility] 4 13:50:27 Pain of right hip joint 236759415081 102 Active 2023 DERICK CHAPMAN [address] [place], [address], [facility] 4 13:54:16 Osteoarth ritis of hip 649744655 Active 2023 DERICK CHAPMAN [address] [place] [address], [address], [facility] 4 12:02:33 Pain in right foot 075373404155 107 Active 2024 DERICK CHAPMAN [address] [place] [address], [address], [facility] 5 16:18:32 Mixed conductiv e and sensorine ural hearing loss, bilateral 200578890 Active 2024 DERICK CHAPMAN [address] [place] [address], [address], [facility] 5 16:20:02 Problem Notes None recorded. Procedures Surgical History Date Name Laterality Status Provider Name and Address Organization Details Recorded Time 025 colonoscopy completed Izaiah Cazares [facility] 11/20/2024 15:18:52 005 Nerve surgery completed Shelbi Gongora NP, S [address] [place] [address], [address], [facility] 09/10/2018 14:26:45 004 Hernia repair w/mesh completed Shelbi Gongora NP, Gali [address] [place] [address], [address], [facility] 09/10/2018 14:26:20 996 Arthroscopic Surgery completed Shelbi Gongora NP, S [address] [place], [address], [facility] 09/10/2018 14:25:52 Tonsillectomy completed Shelbi smith NP, S [address] [place], [address], [facility] 09/10/2018 14:24:48 Joint Replacement completed Shelbi Gongora NP, S [address] [place], [address], [facility] 09/10/2018 14:27:26 Imaging Results None recorded. Procedure Notes None recorded. Medical Equipment None Reported. Allergies Allergen ID Allergen Name Allergen Category Reaction Reaction Severity Criticality Documentation Date Start Date Code Code System Note Provider Name and Address Organization Details Recorded Time 6116 Trulicity medicatio n nausea moderate Not available 09/19/2022 38014 96 RxNorm DERICK CHAPMAN [address] [place], [address], [facility] Internal [facility] 14:38:54 Medications Name Sig Start Date Stop Date Status Note LastModified by Organization Details LastModified Time atorvasta tin 80 mg tablet TAKE 1 TABLET BY MOUTH EVERY DAY active Not Available Not Available No t Available carvedilo l 6.25 mg tablet TAKE ONE-HALF TABLET BY MOUTH TWICE DAILY WITH MEALS active Not Available Not Available No t Available prednison e 10 mg tablet 50 mg x 3 tabs 40 mg x 3 tabs 30 mg x 3 tabs 20 mg x 3 days10 mg x 3 days 10/02 completed Not Available Not Available Not Available azithromy syl 250 mg tablet TAKE 2 TABLETS (500 MG) BY ORAL ROUTE ONCE DAILY FOR 1 DAY THEN 1 TABLET (250 MG) BY ORAL ROUTE ONCE DAILY FOR 4 DAYS 10/02 completed Not Available Not Available Not Available ibuprofen 800 mg tablet TAKE 1 TABLET BY MOUTH TWICE DAILY WITH MEALS FOR 15 DAYS 09/27 completed Not Available Not Available Not Available ofloxacin 0.3 % eye drops INSTILL 1 DROP IN RIGHT EYE FOUR TIMES DAILY 04/12 /2022 completed Not Available Not Available Not Available glipizide ER 10 mg tablet, extended release 24 hr TAKE 1 TABLET BY MOUTH EVERY DAY 10/25 completed Not Available Not Available Not Available meloxicam 15 mg tablet Take 1 tablet every day by oral route with meal(s) for 30 days. active Not Available Not Available No t Available glipizide 10 mg tablet Take 1 tablet twice a day by oral route. 08/05 completed Not Available Not Available Not Available aspirin 81 mg tablet,de layed release TAKE 1 TABLET BY MOUTH EVERY DAY active Not Available Not Available No t Available acetamino phen 500 mg tablet TAKE 2 TABLETS BY MOUTH THREE TIMES DAILY NEEDED FOR MILD PAIN active Not Available Not Available No t Available carvedilo l 3.125 mg tablet TAKE 1 TABLET BY MOUTH TWICE DAILY WITH MEALS 09/27 completed Not Available Not Available Not Available amoxicill in 875 mg tablet TAKE 1 TABLET BY MOUTH EVERY 12 HOURS FOR 10 DAYS 07/22 completed Not Available Not Available Not Available pravastat in 80 mg tablet 03/10 completed Not Available Not Available Not Available tamsulosi n 0.4 mg capsule TAKE 1 CAPSULE BY MOUTH AT BEDTIME active Not Available Not Available No t Available cephalexi n 500 mg capsule TAKE 1 CAPSULE BY MOUTH FOUR TIMES DAILY FOR 7 DAYS 10/17 completed Not Available Not Available Not Available metformin 1,000 mg tablet TAKE 1 TABLET BY MOUTH TWICE DAILY 2024 active Not Available Not Available Not Avai lable buspirone 10 mg tablet TAKE 1 TABLET BY MOUTH EVERY DAY active Not Available Not Available No t Available losartan 25 mg tablet TAKE 1 TABLET BY MOUTH EVERY DAY 02/22 completed Not Available Not Available Not Available docusate sodium 100 mg capsule TAKE ONE CAPSULE BY MOUTH TWICE DAILY active Not Available Not Available No t Available omeprazol e 20 mg capsule,d elayed release TAKE 1 CAPSULE BY MOUTH EVERY DAY IN THE MORNING 30 MINUTES BEFORE MORNING MEAL 07/22 completed Not Available Not Available Not Available diltiazem CD 120 mg capsule,e xtended release 24 hr TAKE 1 CAPSULE BY MOUTH EVERY DAY 10/06 completed Not Available Not Available Not Available codeine 10 mg-guaife nesin 100 mg/5 mL oral liquid TAKE 10 ML BY MOUTH EVERY 4 HOURS NEEDED 10/02 completed Not Available Not Available Not Available bisacodyl 5 mg tablet,de layed release TAKE 4 TABLETS BY MOUTH ONCE THE DAY BEFORE PROCEDUR E WITH 8 OUNCES OF WATER 02/22 completed Not Available Not Available Not Available lorazepam 1 mg tablet TAKE 1 TABLET BY MOUTH AT BEDTIME NEEDED 08/12 completed Not Available Not Available Not Available ibuprofen 600 mg tablet TAKE 1 TABLET BY MOUTH FOUR TIMES DAILY NEEDED FOR MODERATE PAIN active Not Available Not Available No t Available albuterol sulfate HFA 90 mcg/actua tion aerosol inhaler INHALE 2 PUFFS BY MOUTH EVERY 4 TO 6 HOURS active Not Available Not Available No t Available ipratropi um bromide 21 mcg (0.03 %) nasal spray INSTILL 1 SPRAY IN EACH NOSTRIL 3 TIMES A DAY 09/27 completed Not Available Not Available Not Available glipizide 5 mg tablet TAKE 1 TABLET BY MOUTH EVERY DAY DIRECTED 11/19 completed Not Available Not Available Not Available oxycodone 5 mg tablet TAKE 1 TABLET BY MOUTH EVERY 6 HOURS FOR UP TO 4 DAYS NEEDED FOR PAIN 10/02 completed Not Available Not Available Not Available valsartan 40 mg tablet Take 1 tablet every day by oral route for 90 days. 08/12 completed Not Available Not Available Not Available bupropion HCl XL 300 mg 24 hr tablet, extended release TAKE 1 TABLET BY MOUTH EVERY DAY active Not Available Not Available No t Available tadalafil 5 mg tablet TAKE 1 TABLET BY MOUTH EVERY DAY active Not Available Not Available No t Available metoprolo l tartrate 25 mg tablet Take 1 tablet twice a day by oral route for 90 days. 10/06 completed Not Available Not Available Not Available duloxetin e 60 mg capsule,d elayed release TAKE 1 CAPSULE BY MOUTH EVERY DAY active Not Available Not Available No t Available Boostrix Tdap 2.5 Lf unit-8 mcg-5 Lf/0.5 mL intramusc ular syringe ADM 0.5ML IM UTD 03/10 completed Not Available Not Available Not Available fenofibra te 160 mg tablet 08/05 completed Not Available Not Available Not Available Mag Glycinate active Not Available Not Available No t Available peg 3350-elec trolytes 236 gram-22.7 4 gram-6.74 gram-5.86 gram solution MIX AND DRINK DIRECTED 02/22 completed Not Available Not Available Not Available FreeStyle Lite Strips Take 1 strip twice a day by miscell. route for 30 days. 2023 active Not Available Not Available Not Avai lable Lantus Solostar U-100 Insulin 100 unit/mL (3 mL) subcutane ous pen ADMINIST ER 30 UNITS UNDER THE SKIN AT BEDTIME 2024 active Not Available Not Available Not Avai lable glipizide ER 10 mg 24 hr tablet,ex tended release Take 1 tablet twice a day by oral route. 08/05 completed Not Available Not Available Not Available Prevnar 13 (PF) 0.5 mL intramusc ular syringe ADM 0.5ML IM UTD 03/10 completed Not Available Not Available Not Available Tradjenta 5 mg tablet 1 Tablet daily active Not Available Not Available No t Available Brilinta 90 mg tablet TAKE 1 TABLET BY MOUTH TWICE A DAY 03/10 completed Not Available Not Available Not Available Jardiance 10 mg tablet TAKE 1 TABLET BY MOUTH EVERY DAY active Not Available Not Available No t Available Jardiance 25 mg tablet TAKE 1 TABLET BY MOUTH EVERY DAY 2024 active Not Available Not Available Not Avai lable Trulicity 0.75 mg/0.5 mL subcutane ous pen injector INJECT 0.75MG UNDER THE SKIN ONE DAY A WEEK FOR 30 DAYS 08/12 completed Not Available Not Available Not Available Shingrix (PF) 50 mcg/0.5 mL intramusc ular suspensio n, kit ADMINIST ER 0.5ML IN THE MUSCLE DIRECTED 12/09 completed Not Available Not Available Not Available Fluad Quad 1288-4626 (65yr up)(PF) 60 mcg (15 mcg x 4)/0.5mL IM syringe ADM 0.5ML IM UTD 03/10 completed Not Available Not Available Not Available Trulicity 3 mg/0.5 mL subcutane ous pen injector ADMINIST ER 3MG UNDER THE SKIN EVERY WEEK 09/19 completed 08/02/22 - holding getting very ill when takingHO LDING PER RT Not Available Not Available Not Available Paxlovid 300 mg (150 mg x 2)-100 mg tablets in a dose pack TK 2 NIRMATRE LVIR TS AND 1 RITONAVI R T TOGETHER PO BID FOR 5 DAYS 09/27 completed Not Available Not Available Not Available Anika Pen Needle 32 gauge x USE DIRECTED WITH LANTUS ONCE AT BEDTIME active Not Available Not Available No t Available Vitals Date Recorded Body weight Body mass index (BMI) Body height Heart rate Oxygen saturation Systolic And Diastolic Provider Name and Address Organization Details Last Updated DateTime 5 39161.1 4 g 30.4 kg/m2 180.34 cm 68 /min 98 % 120/74 mm[Hg] [facility] 5 16:03:48 Social History Question Answer Notes LastModified by Organizat ion Details LastModified Time Tobacco Smoking Status Never Smoker Not Available [facility] 09/15/2020 03:36:23 What Was The Date Of Your Most Recent Tobacco Screening? 10/02/2024 [email or web address] Information not available 10/02/2024 Sex: Unknown Functional Status Question Answer Note LastModified by Organization D etails LastModified Time Do you or have you ever used any other forms of tobacco or nicotine? No [email or web address] Information not available 02/22/2022 Mental Status None recorded. Family History Relationship Description Onset Age of this Age Resolved Age Notes LastModified by Organization Details LastModified Time Father Myocardial infarction 76 cva, HTN [email or web address] Not available 09/10/2018 14:24:12 Medical History Condition Response Coronary Artery Disease N Gout N Other N Kidney Stones N Blood Diseases N Hyperthyroidism N Blood Transfusion N Breast Cancer N Lung Disease N Hypothyroidism N Depression N COPD N Defects or Inherited Disease N Anesthesia Complications N Anxiety Disorder N Meniere's disease N Muscle, Joint, or Bone Problems N Obesity N Vision or Eye Problems N Arthritis N Infertility N Polyps N Mental Disorder N Cancer N Varicosities N Stroke N Endometriosis N Bladder or Kidney Problems N High Cholesterol N Liver Disease N Fibromyalgia N Headaches N Kidney Disease N Allergies/Hayfever N Heart Problems N Hospitalizations N Thyroid Problems N GI Problems N Eating Disorder N Skin Problems N Anemia N MRSA exposure N Constipation N Mental Illness N Diabetes N Ovarian Cancer N Seizures/Epilepsy N Tuberculosis N Congestive Heart Failure (CHF) N Eczema N Abuse/Domestic Violence N Diverticulitis N Asthma N Reflux/GERD N Hepatitis N Heart Disease N Pulmonary Embolism N Hypertension N Chicken Pox N Autism Spectrum Disorder (ASD) N Osteoporosis N Immunizations Vaccine Type Date Status Note Provider Nam e and Address Organization Details Recorded Time COVID-19, mRNA, LNP-S, PF, 30 mcg/0.3 mL dose 1 completed Not Available [facility] 12/27/2023 13:47:14 COVID-19, mRNA, LNP-S, PF, 30 mcg/0.3 mL dose 1 completed Not Available [facility] 12/27/2023 13:47:14 zoster recombinant 1 completed Not Available [facility] 12/27/2023 13:47:14 COVID-19, mRNA, LNP-S, PF, 30 mcg/0.3 mL dose 1 completed Not Available [facility] 12/27/2023 13:47:14 Influenza, split virus, quadrivalent, preservative 1 completed Not Available [facility] 12/27/2023 13:47:14 COVID-19, mRNA, LNP-S, PF, 30 mcg/0.3 mL dose 2 completed Not Available [facility] 12/27/2023 13:47:14 Influenza, split virus, quadrivalent, preservative 9 completed Not Available [facility] 12/27/2023 13:47:14 Influenza, split virus, trivalent, preservative 8 completed Not Available [facility] 12/27/2023 13:47:14 Influenza, split virus, quadrivalent, preservative 0 completed Not Available [facility] 12/27/2023 13:47:14 Tdap 0 completed Not Available [facility] 12/27/2023 13:47:14 zoster, unspecified formulation 0 completed Not Available [facility] 12/27/2023 13:47:14 Pneumococcal conjugate PCV 13 0 completed Not Available [facility] 12/27/2023 13:47:14 Past Encounters Encounter ID Performer Location Encounter Start Date Encounter Closed Date Diagnosis/Indication Diagnosis SNOMED-CT Code Diagnosis ICD10 Code Diagnosis IMO Codes Diagnosis Note [id number] DO Zander Perez Internal [facility] [address],[place] [address] 07/22/2025 15:56:28 07/22/2025 16:38:02 Pain in right foot 9898141958 57654 M79.671 388976 Mixed cond uctive and sensorineural hearing loss, bilateral 169425034 H90.6 9997101 Disorder d ue to type 2 diabetes mellitus 302980838 E11.37X1 having him try the freestyle junior 3 + Health Concerns Section Related Observation LastModified by Organization Detai ls LastModified Time None Recorded Concern Status LastModified by Organization Details LastModified Time None Recorded Payers Encounter Date Sequence Insurance Name Policy Number Policy Woodward Covered Member ID Woodward Member ID Guarantor Name 07/22/2025 2 [employer] (MEDICARE SUPPLEMENT) Sean Cárdenas [id number] Sean Cárdenas 07/22/2025 1 [place]IC[place]: [employer] Sean Cárdenas [id number] Sean Cárdenas Notes Date Note Type Note Provider Name a nd Address Organization Details Recorded Time 07/22/2025 text/html ROS as noted in the HPI c/o right foot exam the patient has been having ongoing foot painthe patient reports that he had been having numbness and pain in his big toe jointthe patient reports that he has a hx of martin ankle sprays, no recent injury to the foot the patient reports possible planter fasciitis, pain in the plantar part of the foot into the arch of the footthe patient and I agreed to a f/u with XR patient is doing well overallneeds new audio referral discussed freestyle for CGMpt given samples and instructions for use and how to place on his armpt has info brochure for further questions if he likes it and will let me know will place order for patient DERICK CHAPMAN [address] [facility], [place], [address], [facility] 07/22/2025 16:36:18
--- OUTSIDE RECORDS SUMMARY | 2025-10-03 14:12 | XMS_ITS | Encounter Summary ---
Author Organization [facility] Address [address] [place] [address] Phone Care Team Providers Care [employer] Mdm Architect Name Role Phone Flex Cazares DO Primary Care Provider [phone] Flex Cazares DO Unavailable Reason for Referral * Occupational Therapy (Routine) - Closed Specialty Diagnoses / Procedures Referred By Mk almonte Referred To Contact Occupational Therapy Diagnoses Encounter for rehabilitation Right Ring & Middle Joint Replacement Procedures Evaluate & Treat Melissa Hart MD Phone: tel: fax: [email or web address] [address] [address] Phone: tel: Referral ID Status Reason Start Date Expiration Date Visits Re quested Visits Authorized [id number] Closed 02/25/2019 07/02/2019 16 16 Encounter Details Date Type Department Care Team (Latest Contact Info) Description 02/22/2019 Transcribe Orders [facility] [address] [place] [address] Melissa Hart MD [address] [place] [address] [phone] [email or web address] Encounter for rehabilitation (Primary Dx) Social [...] Description 10/27/2025 9:15 AM EST Office Visit [facility] [address], [address] [place] [address] Phil Salas DO [address] [facility] [address] [place] [id number] [email or web address] Scheduled Referrals Name Type Priority Associated Diagnoses Orde r Schedule Ambulatory referral to [facility] Occupational Therapy Outpatient Referral Routine Encounter for rehabilitation Ordered: 02/22/2019 documented as of this encounter Visit Diagnoses Diagnosis Encounter for rehabilitation- Primary documented in this encounter Care Teams [employer] Mdm Architect Relationship Specialty Start Date End Date Flex Cazares DO PCP - General Internal Medicine 09/19/17 Flex Cazares DO [address] [facility] [address] [address] [place] [address] [place] [address] [email or web address] Insurance Assigned Provider 02/10/18 10/19/19 documented as of this encounter Additional Source Comments The information contained in this document represents components of the legal health record. It is not the complete legal health record.[facility]
--- OUTSIDE RECORDS SUMMARY | 2025-10-03 14:12 | XMS_ITS | Encounter Summary ---
Author Organization [facility] Address [address] [facility] [address] [place] [address] Phone Care Team Providers Care Media Production Manager Name Role Phone Felx Cazares DO Primary Care Provider [phone] Encounter Details Date Type Department Care Team (Late st Contact Info) Description 08/08/2025 Ancillary Orders [facility], X-Ray - [address] [address] Emely Barrett PA 6 [facility] [place] [address] [place] [address] Right foot pain (Primary Dx) Social History Tobacco Use Types [...] Description 10/27/2025 9:15 AM EST Office Visit [facility] [address] [place] [address] [address] [facility], [address] [place], [place] [id number] Phil Salas DO [address] [place] [address] [place] [address] [email or web address] documented as of this encounter Results * XR FOOT 3 OR MORE VIEWS (RIGHT) (08/08/2025 3:49 PM EDT) Anatomical Region Laterality Modality Foot Right Computed Radiogr aphy 08/11/2025 8:46 AM EDT Impressions 08/11/2025 8:50 AM EDT Degenerative changes. Narrative 08/11/2025 8:50 AM EDT XR FOOT 3 OR MORE VIEWS (RIGHT) Referring clinician's provided indication for this examination in Epic: Pain COMPARISON: None FINDINGS: No acute fracture or dislocation. There are mild to moderate degenerative changes throughout the foot with joint space loss and small marginal spurs, for example involving the interphalangeal joints, great toe metatarsophalangeal joint, and the tarsometatarsal joints. Distal Achilles enthesopathy. Procedure Note Dg Lozano MD - 08/11/2025 XR FOOT 3 OR MORE VIEWS (RIGHT) Referring clinician's provided indication for this examination in Epic:Pain COMPARISON: None FINDINGS: No acute fracture or dislocation. There are mild to moderate degenerativechanges throughout the foot with joint space loss and small marginalspurs, for example involving the interphalangeal joints, great toemetatarsophalangeal joint, and the tarsometatarsal joints. Distal Achillesenthesopathy. IMPRESSION: Degenerative changes. Emely SEPULVEDA IMG XR LOWER EXTREMITY Lilian l Result documented in this encounter Visit Diagnoses Diagnosis Right foot pain- Primary Pain in soft tissues of limb Right foot pain Pain in soft tissues of limb documented in this encounter Care Teams Media Production Manager Relationship Specialty Start Date End Date Flex Cazares DO [email or web address] PCP - General Internal Medicine 09/19/17 documented as of this encounter Additional Source Comments The information contained in this document represents components of the legal health record. It is not the complete legal health record.[facility]
--- OUTSIDE RECORDS SUMMARY | 2025-10-03 14:12 | XMS_ITS | Encounter Summary ---
Author Organization [facility] Address [address] [place] [address] Phone Care Team Providers Care Electroplating Laborer Name Role Phone Flex Cazares DO Primary Care Provider [phone] Flex Cazares DO Unavailable Reason for Referral * Physical Therapy (Routine) - Closed Specialty Diagnoses / Procedures Referred By Mk almonte Referred To Contact Physical Therapy Diagnoses Encounter for rehabilitation Melissa Hart MD Phone: tel: fax: [email or web address] [address] [address] Phone: tel: Referral ID Status Reason Start Date Expiration Date Visits Re quested Visits Authorized [id number] Closed 09/12/2018 07/02/2019 10 10 Encounter Details Date Type Department Care Team (Latest Contact Info) Description 09/12/2018 Transcribe Orders [facility] Services 8 [place] [address] Melissa Hart MD [address] [place] [address] [address] [place] [address] [email or web address] Encounter for rehabilitation (Primary Dx) Social [...] Description 10/27/2025 9:15 AM EST Office Visit [facility] [address] [facility] 3rd Floor, [address] [place] [address] Phil Salas DO 22 [facility] [address] [place] [address] [email or web address] Scheduled Referrals Name Type Priority Associated Diagnoses Orde r Schedule Ambulatory referral to [facility] Physical Therapy Outpatient Referral Routine Encounter for rehabilitation Ordered: 09/12/2018 documented as of this encounter Visit Diagnoses Diagnosis Encounter for rehabilitation- Primary documented in this encounter Care Teams Electroplating Laborer Relationship Specialty Start Date End Date Flex Cazares DO PCP - General Internal Medicine 09/19/17 Flex Cazares DO [address] [facility] [place] [address] Insurance Assigned Provider 02/10/18 10/19/19 documented as of this encounter Additional Source Comments The information contained in this document represents components of the legal health record. It is not the complete legal health record.[facility]
--- OUTSIDE RECORDS SUMMARY | 2025-10-03 14:12 | XMS_ITS | Encounter Summary ---
Author Organization [facility] Address [address] [place] [address] Phone Care Team Providers Care Production Welder Name Role Phone Flex Cazares DO Primary Care Provider [phone] Flex Cazares DO Unavailable Reason for Referral * Physical Therapy (Routine) - Closed Specialty Diagnoses / Procedures Referred By Mk almonte Referred To Contact Physical Therapy Diagnoses Encounter for rehabilitation System, Provider Not In, [facility] [id number] [place] [address] Phone: tel: Referral ID Status Reason Start Date Expiration Date Visits Re quested Visits Authorized [id number] Closed 07/02/2018 07/02/2019 6 6 Encounter Details Date Type Department Care Team (Latest Contact Info) Description 06/14/2018 Transcribe Orders [facility] [address] [place] [address] Ricky Hale PA [address] [place] [address] Encounter for rehabilitation (Primary Dx) Social History [...] Description 10/27/2025 9:15 AM EST Office Visit [facility] 22 [facility] 3rd Floor, [address] [place] [address] Phil Salas DO 22 [facility] [address] [place] [address] documented as of this encounter Procedures Procedure Name Priority Date/Time Associated Diagnosis Comments AMB REFERRAL TO [facility] PHYSICAL THERAPY Routine 07/09/2018 4:15 PM EDT Encounter for rehabilitation documented in this encounter Results * Ambulatory referral to [facility] Physical Therapy (07/09/2018 4:15 PM EDT) us Provider Not In System PhD AMB [facility] REFERRALS Fin al Result documented in this encounter Visit Diagnoses Diagnosis Encounter for rehabilitation- Primary documented in this encounter Care Teams Production Welder Relationship Specialty Start Date End Date Flex Cazares DO PCP - General Internal Medicine 09/19/17 Flex Cazares DO [address] [facility] [place] [address] Insurance Assigned Provider 02/10/18 10/19/19 documented as of this encounter Additional Source Comments The information contained in this document represents components of the legal health record. It is not the complete legal health record.[facility]
--- OUTSIDE RECORDS SUMMARY | 2025-10-03 14:12 | XMS_ITS | Encounter Summary ---
Author Organization [facility] Address [facility] [address] [address] Phone Care Team Providers Care Platform Beater Name Role Phone lFex Cazares DO Primary Care Provider [phone] Encounter Details Date Type Department Care Team ([facility] st Contact Info) Description 08/22/2022 Transcribe Orders [facility] Rehabilitation Services [address] [place] [address] Suni Christian PA [address] [place] [phone] Social History Tobacco Use Types Packs/Day Years [...] 2:45 AM EDT Yulia Rey RN * [place] Suicide Severity Rating Scale (Screener/Recent Self-Report) Question [...] Description 10/27/2025 9:15 AM EST Office Visit [facility] 22 [facility] 3rd Floor, [address] [place] [address] Phil Salas DO 22 [facility] [address] [place] [address] [email or web address] documented as of this encounter Visit Diagnoses Not on filedocumented in this encounter Care Teams Platform Beater Relationship Specialty Start Date End Date Flex Cazares DO [email or web address] PCP - General Internal Medicine 09/19/17 documented as of this encounter Additional Source Comments The information contained in this document represents components of the legal health record. It is not the complete legal health record.[facility]
--- OUTSIDE RECORDS SUMMARY | 2025-10-03 14:12 | XMS_ITS | Encounter Summary ---
Author Organization [facility] Address [address] [place] [address] Phone Care Team Providers Care Sales And Production Manager Name Role Phone Flex Cazares DO Primary Care Provider [phone] Encounter Details Date Type Department Care Team (Late st Contact Info) Description 11/20/2024 Procedure Pass [facility] Endoscopy Admitting Dept Virtual Department [address] [place] [address] Social History Tobacco Use Types Packs/Day Years [...] Description 10/27/2025 9:15 AM EST Office Visit [facility] 22 [facility] 3rd Floor, [address] [place] [address] Phil Salas DO 22 [facility] [address] [place] [address] documented as of this encounter Visit Diagnoses Not on filedocumented in this encounter Care Teams Sales And Production Manager Relationship Specialty Start Date End Date Flex Cazares DO PCP - General Internal Medicine 09/19/17 documented as of this encounter Additional Source Comments The information contained in this document represents components of the legal health record. It is not the complete legal health record.[facility]
--- OUTSIDE RECORDS SUMMARY | 2025-10-03 14:12 | XMS_ITS | Clinical Summary ---
Author Organization [facility] Address [address] [place] [address] Phone Care Team Providers Care Ladle Watcher Name Role Phone Devika Mccloud DO Primary Care Provider [phone] Allergies Active Allergy Reactions Criticality Noted Date [...] USE DIRECTED EVERY DAY 11/05/20 23 Active meloxicam (MOBIC) 15 MG tablet Take 1 tablet by mouth every morning. 11/08/20 24 Active MAGNESIUM GLYCINATE-MAG OXIDE ORAL Take 250 mg by mouth 2 (two) times a day. 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 90 tablet 3 08/13/20 25 Active Active Problems Problem Noted Date [...] PM EDT): Hx CAD with STEMI in 2019 s/p KELSIE to proximal/mid LAD. Nuclear stress [...] emergency room but he ruled out for [place] we will go ahead and do a [...] so we could review them. 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 He remains on oral hypoglycemics and [...] minutes with this patient which included documentation. Encounters Date Type Department Care Team Description 09/25/2025 4:32 PM EST - 09/25/2025 11:59 PM EST Hospital Encounter Echo Lab [address] [place] [address] Mar Maher PA-C Discharge Disposition: Home or Self Care 09/02/2025 3:50 PM EDT - 09/02/2025 11:59 PM EDT Hospital Encounter [address] [address] Jono Stanford PA-C Discharge Disposition: Home or Self Care 08/13/2025 Refill [facility] [address] [place] [address] 3rd Floor, [address] [place] [address] Melissa Mack MA Medication Refill 08/08/2025 3:34 PM EDT - 08/08/2025 11:59 PM EDT Hospital Encounter [address] [address] Emely Barrett PA Discharge Disposition: Home or Self Care 08/08/2025 Ancillary Orders [address] [address] Emely Barrett PA Right foot pain (Primary Dx) 02/10/2025 Procedure Pass Echo Lab [address] [place] [address] from Last 3 Months Family History Medical History Relation Comments Heart [...] Reading Time Taken Comments Blood Pressure 108/68 09/25/2025 4:44 PM EST Pulse 76 02/10/2025 12:52 PM EDT Temperature 36.3 C (97.3 F) 11/20/2024 11:44 AM EST Respiratory Rate 20 11/20/2024 12:0 4 PM EST Oxygen Saturation 95% 02/10/2025 12: 52 PM EDT Inhaled Oxygen Concentration - - Weight 100.7 kg (222 lb 0.1 oz) 09/25/2025 4:44 PM EST Height 180 cm (5' 10.87 ) 09/25/2025 4:44 PM EST Body Mass Index 31.08 09/25/2025 4:44 PM EST Plan of Treatment Upcoming Encounters Date Type Department Care Team (Late st Contact Info) Description 10/27/2025 9:15 AM EST Office Visit [facility] [address] [place] [address] 3rd Floor, [address] [place] [address] Phil Salas DO [address] [facility] [address] [place] [address] [email or web address] Maintenance Due Date Last Done Comments DEPRESSION SCREENING 1967 COLOGUARD 2000 FIT TEST 2000 FOBT 2000 SIGMOIDOSCOPY 2000 VIRTUAL COLONOSCOPY 2000 DIABETIC EYE EXAM 11/07/2019 PNEUMOCOCCAL VACCINES (50+ years) (2 of 2 - PPSV23, PCV20, or PCV21) 10/28/2020 09/02/2020 URINE MICROALBUMIN/CREATININE RATIO 2021 2020, 10/30/2018 HEMOGLOBIN A1C 01/30/2025 11/01/2024, 05/0 06/2020, 10/30/2018 INFLUENZA VACCINE (#1) 2025 , 10/13/2023, 09/03/2022, Additional history exists COVID-19 VACCINE ( season) 2025 07/10/2024, 08/07/2023, 08/15/2022, Additional history exists BLOOD PRESSURE 08/12/2025 02/10/2025 CREATININE LEVEL 11/01/2025 11/01/2024, , 03/18/2023, Additional history exists SMOKING Hx and SMOKELESS TOBACCO SCREENING 02/10/2026 02/10/2025 COLONOSCOPY 11/20/2026 11/20/2024, 03/13, 12/08/2020 COLORECTAL CANCER SCREENING 11/20/2026 Adult Td,Tdap Booster 09/23/2030 09/23/2020, 020 HEPATITIS C SCREENING Completed 10/30/2018 ZOSTER VACCINES [...] this topic Medical Devices Implanted Type Area Records Coordinator Device Identifier Shelf Expiration Date Model / Serial / Lot Stent Stent Heart Bilateral Hands Procedures Procedure Name Priority Date/Time Associated Diagnosis Comments TTE COMPREHENSIVE Routine 09/25/2025 5:1 9 PM EST Other cardiomyopathy PSA (SCREENING) Routine 09/02/2025 4:11 PM EDT Benign prostatic hyperplasia with lower urinary tract symptoms, symptom details unspecified XR FOOT 3 OR MORE VIEWS (RIGHT) Routine 08/08/2025 3:49 PM EDT Right foot pain ENDOSCOPY, COLON 11/20/2024 11:2 2 AM EST HEMOGLOBIN A1C Routine 11/01/2024 1:46 PM EST 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 resolved after treatment, unspecified whether intermediate insulin use COMPREHENSIVE METABOLIC PANEL (CMP) Routine 11/01/2024 1:46 PM EST 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 resolved after treatment, unspecified whether termite control representative insulin use CT ABDOMEN/PELVIS WITH CONTRAST Routine 10/28/2023 9:10 AM EST MICROALBUMIN/CREATINI NE RATIO, RANDOM URINE Routine 2020 10:26 AM EDT 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1(A) cm/s Ejection Fraction 65 50 - 75 Percent Left Atrium Dimension Anterior-Posterior 34 15 - 40 mm Aortic Valve Mean Gradient 3 mmHg Aortic Valve Time Velocity Integral 242.0 mm Aortic Valve Peak Velocity 1.3 m/s Aortic Valve Peak Gradient 7 mmHg Aortic Arch Diameter 35 mm Aortic Sinus Diameter 41 <40 mm Ascending Aorta Diameter 36 <36 mm Inferior Vena Cava Diameter 12 <21 mm Mitral Valve Deceleration Time 243 ms Left Ventricle A Wave Speed 63.2 cm/s Left Ventricle E Wave Speed 55.6 cm/s Pulmonary Valve Peak Velocity 1.3 m/s Pulmonary Valve Peak Gradient 7 mmHg Right Ventricle Basal Diameter 28 25 - 41 mm Raw LV EF% 50 % MV E/E' Tissue Velocity Lateral 12.09 Relative Wall Thickness 0.41 0.22 - 0.42 Left Ventricle indexed to BSA 62.6 g/m2 MV E/A ratio 0.9 MV E/e' septal 10.90 Left Ventricle E/e' Average 11.5(A) Aortic Valve Prosthetic Peak Gradient 7 mmHg Aortic Valve Prosthetic Mean Gradient 3 mmHg Aortic Valve Sinus Index by BSA 19 mm/m2 Aorta Sinus Index by Height 2.28 cm/m Aorta Sinus CSA index by Height 7.33 cm2/m Ascending Aorta Index 16 mm/m2 Asc Aorta CSA Index by Height 5.65 cm2/m Pulmonic Valve Prosthetic Peak Gradient 7 mmHg Ascending Aorta Index 16 mm Aortic Sinus Index 19 mm Ascending Aorta Diameter 16 mm Aortic Valve Sinus Index 1 19 20 - 32 mm AO ASC DIAM BSA INDEX 16.36 Echo E/Ea 10.90 Left Atrial Volume Index 33 16 - 34 mL/m2 Right Ventricle TAPSE 22 >=17 mm Right Ventricle Pulse Doppler S Wave 12.0 >=9.5 cm/s Left Atrial Volume 72 mL Left Atrial Volume Index by Height 40 mL/m Right Atrium Area 12 cm2 Right Atrium Area index 5 cm2/m2 Right Atrium Pressure Estimated 3 mmHg Anatomical Region Laterality Modality Heart Ultrasound Narrative 09/29/2025 12:33 PM EST Images from the original result were not included. 1. The indication is cardiomyopathy. The estimated ejection fraction is 55%. Regional wall motion was normal there is borderline concentric LVH and diastolic function appears to be normal. 2. Normal RV size and function. 3. Trileaflet aortic valve there is no evidence of aortic stenosis, the aortic sinuses are 41 mm the ascending aortic root is 36 mm. 4. Trace mitral and tricuspid insufficiency, the PA pressure is normal. 5. Normal pericardium and when compared to the prior echocardiogram done in 2022, there is no significant change. Left Ventricle The left ventricle is normal in size. The LV internal diameter is 44 mm at end diastole, and 31 mm at end systole. There is borderline concentric hypertrophy. The interventricular septal thickness is 10 mm. The LV posterior wall thickness is 9 mm. Left ventricular systolic function is at the lower limits of normal. The LV ejection fraction is 50-55% (visually estimated). LV diastolic function appears within normal limits for age. The e' septal wave velocity is 5.1 cm/s. The e' lateral wave velocity is 4.6 cm/s. The average E/e' ratio is 11.5. Right Ventricle The right ventricle is normal in size. There is normal right ventricular systolic function. TAPSE is 22 mm (normal: >= 17 mm). RV S' wave is 12.0 cm/s (normal: >= 9.5 cm/s). Left Atrium The left atrium is normal in size. The left atrial volume index by BSA is 33 mL/m2. Right Atrium The right atrium is normal in size. The IVC is suboptimally visualized.The IVC is normal in size. Mitral Valve There is mitral valve thickening. There is posterior mitral annular calcification. There is no mitral stenosis. There is trace mitral regurgitation. Tricuspid Valve The tricuspid valve appears normal. There is no tricuspid stenosis. There is trace tricuspid regurgitation. Aortic Valve The aortic valve is tricuspid. There is leaflet thickening. There is no aortic stenosis. There is trace aortic regurgitation. The aortic sinuses are dilated. The aortic sinus diameter is 41 mm. The aortic sinus index by BSA is 19 mm/m2. The ascending aorta is normal in size. The ascending aortic diameter is 36 mm. The ascending aorta index by BSA is 16 mm/m2. Pulmonic Valve The pulmonic valve appears normal. There is no pulmonic stenosis. There is trace pulmonic regurgitation. Pericardium There is no pericardial effusion. General Findings The study was technically difficult (4). Study quality explanation: body habitus. Technique(s) used in the evaluation: Multiplane, Color flow Doppler, Spectral Doppler and Epiaortic scan. The predominant rhythm during the study was sinus. Comparison Findings Compared to prior study on 02/10/2023, IAS/IVS The interatrial septum appears normal. There is no evidence of patent foramen ovale (PFO). us Mar Maher PA-C CV ECHO ORDERABLES Final Res ult * PSA (screening) (09/02/2025 4:11 PM EDT) PSA 0.71 0 - 4.00 ng/mL [facility] Comment: Test Methodology Gabbie [id number] Patient results determined by assays using different manufacturers or methods may not be comparable. Blood 09/02/2025 4:11 PM EDT 09/02/2025 4:13 PM EDT Jono Stanford PA-C LAB BLOOD BKR ORDERABLES F inal Result [address] [address] * XR FOOT 3 OR MORE VIEWS [...] tarsometatarsal joints. Distal Achillesenthesopathy. IMPRESSION: Degenerative changes. us Emely Barrett PA IMG XR LOWER EXTREMITY Lilian l Result * ENDOSCOPY, COLON (11/20/2024 11:22 AM EST) Narrative Transcriptions Jimbo Gaona MD - 11/20/2024 11:22 AM EST [facility] Patient Name: Sean Rendonm Attending MD:: JIMBO GAONA MD, , Procedure Date: 11/20/2024 11:22 AM Date of : 1955 Age: 69 Admit Type: Outpatient Gender: Male Room: [facility] Referring MD: DEVIKA MCCLOUD DO Exam Type: [...] monitored continuously. The Olympus adult variable colonoscope [id number] #2 was introduced through the anus and advanced to the cecum, identified by appendiceal orifice andileocecal valve. The colonoscopy was performed without difficulty. The patient tolerated the procedurewell. The quality of the bowel preparation was excellent. The quality of the bowel preparation was evaluated using the BBPS ([place] Bowel Preparation Scale)with scores of: Right Colon [...] 11:22 AM Procedure Code(s): --- Professional --- 20977, Colonoscopy, flexible; with removal of tumor(s), polyp(s), or other lesion(s) by snare technique --- Technical --- 81903, Colonoscopy, flexible; with removal of tumor(s), polyp(s), or other lesion(s) by snare technique Diagnosis Code(s): --- Professional --- Z86.010, Personal history of colonic polyps D12.2, Benign neoplasm of ascending colon K64.8, Other hemorrhoids --- Technical --- Z86.010, Personal history of colonic polyps D12.2, Benign neoplasm of ascending colon K64.8, Other hemorrhoids CPT copyright 2021 [employer]. All rights reserved. The codes documented in this report are preliminary and upon loan officer reviewmay be revised to meet current compliance requirements. Procedure Date: 11/20/2024 11:22:[address] [place] [id number] us Devika A Bigda DO GI PROCEDURE ORDERABLES Final Re sult * (ABNORMAL) Comprehensive metabolic panel (11/01/2024 1:46 PM EST) SODIUM 138 133 - 146 mmol/L [facility] POTASSIUM 3.6 3.3 - 5.1 mmol/L [facility] CHLORIDE 100 96 - 108 mmol/L [facility] CO2 24 21 - 35 mmol/L [facility] BUN 10 6 - 19 mg/dL [facility] CREATININE 0.80 0.5 - 1.5 mg/dL [facility] GLUCOSE 130(H) 70 - 99 mg/dL [facility] ALBUMIN 4.3 3.9 - 4.8 g/dL [facility] TOTAL PROTEIN 6.4(L) 6.5 - 8.0 g/dL [facility] CALCIUM 9.2 8.4 - 10.3 mg/dL [facility] ALKALINE PHOSPHATASE 119(H) 39 - 117 U/L [facility] TOTAL BILIRUBIN 0.9 0.0 - 1.2 mg/dL [facility] AST 21 0 - 37 U/L [facility] ALT 13 0 - 40 U/L [facility] GLOBULIN 2.1 1 - 4.8 g/dL [facility] EGFR 96 >59 mL/min/1.7 3m2 [facility] Comment:Estimated glomerular filtration rate calculated using the CKD-EPI refit equation. ANION GAP 18 10 - 20 mmol/L [facility] Blood 11/01/2024 1:46 PM EST 11/01/2024 1:48 PM EST Emely Barrett SD LAB BLOOD BKR ORDERABLES Fi nal Result [address] [address] * (ABNORMAL) Hemoglobin A1c (11/01/2024 1:46 PM EST) HEMOGLOBIN A1C 9.0(H) 4.3 - 5.8 % [facility] Blood 11/01/2024 1:46 PM EST 11/01/2024 1:48 PM EST [facility]AB[facility] Fi nal Result Performing Organization Address [facility] Co de Phone Number [address] [address] * CT ABDOMEN/PELVIS WITH CONTRAST (10/28/2023 9:10 [...] URINE MICROALBUMIN <1.2 0 - 2.3 mg/dL [facility] URINE CREATININE 87 mg/dL CONTINUOUS [facility] MICROALB/CRE RATIO NOT CALCULATED 0 - 20 mg/g Cre [facility] Comment:due to Microalbumin <1.2 Urine (Urine) 2020 10: 26 AM EDT 2020 10:35 AM EDT us Devika A Bigda DO LAB URINE ORDERABLES Final Resul t [facility] [address] [place] [address] from Last 3 Months or Most Recently Relevant to Health Maintenance Insurance MEDICARE PART A & B [facility] MEDICARE SUPPLEMENT MEDICARE PART A & B Member Subscriber Plan / Payer (Ef fective 2019-Present) Name:Sean Cárdenas Member ID:[id number] Relation to Subscriber:Self Name:Sean Cárdenas Subscriber ID:[id number] Payer ID:[id number] Group ID:Not on file Type:Medicare Address: [employer] [address] [place] [address] MEDICARE PART A & B MEDICARE SUPPLEMENT MEDICARE PART A & B [facility] MEDICARE SUPPLEMENT MEDICARE PART A & B [facility] MEDICARE SUPPLEMENT MEDICARE PART A & B MEDICARE SUPPLEMENT MEDICARE PART A & B Member Subscriber Plan / Payer (Ef fective 2019-Present) Name:Sean Cárdenas Member ID:[id number] Relation to Subscriber:Self Name:Sean Cárdenas Subscriber ID:[id number] Payer ID:[id number] Group ID:Not on file Type:Medicare Address: [employer] [address] MEDICARE SUPPLEMENT MEDICARE PART A & B [facility] MEDICARE SUPPLEMENT MEDICARE PART A & B [facility] MEDICARE SUPPLEMENT Advance Directives For more information, please contact: [phone] (9AM - 5PM [facility], Monday-Monday) * Full Code (Latest Code Status on File) Date Activated Date Inactivated Comments 12/14/2023 10:20 AM Question Answer Comments Code Status Confirmed With: Patient Care Teams Ladle Watcher Relationship Specialty Start Date End Date Devika Mccloud DO PCP - General Internal Medicine 09/19/17 Additional Source Comments The information contained in this document represents components of the legal health record. It is not the complete legal health record.[facility]
--- OUTSIDE RECORDS SUMMARY | 2025-10-03 14:12 | XMS_ITS | Encounter Summary ---
Author Organization [facility] Address [address] [facility] [address] [place] [address] Phone Care Team Providers Care Liquid Compounder Name Role Phone Flex Cazares DO Primary Care Provider [phone] Encounter Details Date Type Department Care Team (Late Contact Info) Description 12/08/2020 Procedure Pass [facility] Endoscopy Admitting Dept Virtual Department [address] [place] [address] Social History Tobacco Use Types Packs/Day Years [...] Description 10/27/2025 9:15 AM EST Office Visit [facility] [address] [facility] 3rd Floor, [address] [place] [address] Phil Salas DO [address] [facility] [address] [place] [address] [email or web address] documented as of this encounter Visit Diagnoses Not on filedocumented in this encounter Care Teams Liquid Compounder Relationship Specialty Start Date End Date Flex Cazares DO [email or web address] PCP - General Internal Medicine 09/19/17 documented as of this encounter Additional Source Comments The information contained in this document represents components of the legal health record. It is not the complete legal health record.[facility]
--- OUTSIDE RECORDS SUMMARY | 2025-10-03 14:12 | XMS_ITS | Encounter Summary ---
Author Organization [facility] Address [address] [place] [address] Phone Care Team Providers Care Geological E Logger Name Role Phone Flex Cazares DO Primary Care Provider [phone] Encounter Details Date Type Department Care Team (Late st Contact Info) Description 02/10/2025 Procedure Pass [facility] [place] [place] [address] Social History Tobacco Use Types Packs/Day Years [...] Description 10/27/2025 9:15 AM EST Office Visit [facility] [address] [facility] 3rd Floor, [address] [place] [address] Phil Salas DO [address] [facility] [address] [place] [address] [email or web address] documented as of this encounter Visit Diagnoses Not on filedocumented in this encounter Care Teams Geological E Logger Relationship Specialty Start Date End Date Flex Cazares DO [email or web address] PCP - General Internal Medicine 09/19/17 documented as of this encounter Additional Source Comments The information contained in this document represents components of the legal health record. It is not the complete legal health record.[facility]
--- OUTSIDE RECORDS SUMMARY | 2025-10-03 14:12 | XMS_ITS | Encounter Summary ---
Author Organization [facility] Address [address] [facility] [address] [place] [address] Phone Care Team Providers Care Power Electronics Research Engineer Name Role Phone Flex Cazares DO Primary Care Provider [phone] Encounter Details Date Type Department Care Team (Late Contact Info) Description 03/30/2022 Procedure Pass [facility] Endoscopy Admitting Dept Virtual Department [address] [place] [address] Social History Tobacco Use Types Packs/Day Years [...] Department Care Team (Late Contact Info) Description 10/27/2025 9:15 AM EST Office Visit [facility] [address] [facility] 3rd Floor, [address] [place] [address] Phil Salas DO [address] [facility] [address] [place] [address] [email or web address] documented as of this encounter Visit Diagnoses Not on filedocumented in this encounter Care Teams Power Electronics Research Engineer Relationship Specialty Start Date End Date Flex Cazares DO [email or web address] PCP - General Internal Medicine 09/19/17 documented as of this encounter Additional Source Comments The information contained in this document represents components of the legal health record. It is not the complete legal health record.[facility]
--- OUTSIDE RECORDS SUMMARY | 2025-10-03 14:12 | XMS_ITS | Data Portability ---
Author Organization [facility] Telehealth Patient Home Address [address] [place] [address] Assessment Encounter Date Assessment Date Assessment LastModified by Organization Details LastModified Time 09/27/2023 09/27/2023 The patient denies recent falls or recurrent falls. Denies instability, weakness, abnormal gait, or difficulties with movement. The patient wears correct, supportive shoes and is not otherwise severely visually impaired. The patient is full weight bearing and if using the assistance of a cane or walker feels supported and stable with the use of such devices. All medical conditions have been taken into account that may pose a risk for the patient for falls. Home gisella, carpets and/or rugs do not pose a challenge for the patient. The patient has been educated about the use of vitamin D supplementation for bone health and prevention of hypotensive episodes that may increase risk for fall. All question and concerns were answered to the patient's satisfaction. [email or web address] Not available 09/27/2023 10:25:27 Plan of Treatment Reminders Order Date Submit Date Provider Last Modified By Organization Details Last Modified Time Details Appointments ANNUAL EXAM 2024 11:45A DERICK GARCIA Not available Not available Not available Lab lipid panel, serum 2023 024 [facility], [address] [place] [address], [address], 11/02/2024 07:42:16 CMP, serum or plasma 2023 024 [facility], [address] [place] [address], [address], 10/02/2024 13:58:20 hemoglobi n A1c, QN, blood 2023 024 [facility], [address] [place] [address], [address], 11/02/2024 07:42:39 CBC w/ auto diff 2023 024 [facility], [address] [place] [address], [address], 11/02/2024 07:41:46 CBC w/ auto diff 2022 023 [facility], [address] [place] [address], [address], 09/27/2023 10:34:51 CMP, serum or plasma 2022 023 [facility], [address] [place] [address], [place], [address], 09/27/2023 10:34:51 lipid panel, blood 2022 023 [facility], [address] [place] [address], [address], 09/27/2023 10:34:51 hemoglobi n A1c, QN, blood 2022 023 [facility], [address] [place] [address], [place], [address], 03/06/2024 12:21:[address] referral 2024 025 [email or web address] 10 [facility] [place], [address] [place] [address], [place], [address], 07/25/2025 08:41:56 Procedures None recorded. Surgeries None recorded. Imaging XR, foot, 3 or more view 2024 025 [facility] Central Scheduling (Not Breast), [address] [place], [address], 08/05/2025 08:29:16 XR, hip + pelvis, unilatera l, 2 or 3 view 2023 024 [facility] Central Scheduling (Not Breast), [address] [place] [address], [address], 10/16/2024 08:30:36 Medication Orders buspirone 10 mg tablet 2021 022 [id number], [address] [place], [place], [id number], 09/19/2022 14:47:23 Patient TargetsNo targets recorded. Patient Instructions Encounter Date Encounter Id Patient Instructions Last Modified By Organization Details Last Modified Time 10/17/2022 [id number] pulse oximetry* [email or web address] Not available 10/17/2022 14:31:58 Reason for Referral Production Checker Referral for [facility] ed conductive and sensorineural hearing loss, bilateral bilateral hearing loss, has hearing aids, hearing is worsening Referring Physician: Emely Barrett, Internal Medicine, Encounter Date: 07/22/2025 Results Created Date Observation Date Name Description Value Unit Range Abnormal Flag Note LastModifiedBy Organization Detail LastModifiedTime 10/17/2010/17/2022 pulse oxime try* Result 97 Not Available [facility] [address], [place], [address], 10/17/2022 08:51:52 08/22/20 22 08/22/2022 CT, angio gram, abdom en + pelvi s, w/ contr ast No observ ation record ed. [facility] (Emergency Room) [address] [place] [address], [address], 08/23/2022 08:32:21 11/21/19 23 11/16/2022 exerc ise stres s test No observ ation record ed. [email or web address] Not Available 2022 14:47:37 02/02/20 23 01/31/2023 US, echo ardio gram No observ ation record ed. [facility] [address], [place], [address], 02/01/2023 15:41:39 03/20/20 24 2024 XR, chest , 2 view No observ ation record ed. [address], [address], 10/02/2024 13:47:06 09/02/20 24 08/29/2024 XR, finge r(s) No observ ation record ed. [facility] [address] [place] [address], [place], [address], 10/02/2024 13:47:06 11/08/20 24 10/24/2024 XR, hip + pelvi s, unila teral , 2 or 3 view No observ ation record ed. [address], [place], [address], 11/08/2024 11:47:46 08/11/20 25 08/08/2025 XR, foot, 3 or more view No observ ation record ed. [facility] [address], [place], [address], 08/12/2025 08:39:09 09/29/20 25 09/25/2025 US, [facility] ardio gram No observ ation record ed. [facility] [address], [place], [address], 09/29/2025 13:24:25 Result Notes None recorded. Problems Name Problem SNOMED Code Status Onset Date Resolution Date Notes Provider Name and Address Organization Details Recorded Time Depressiv e disorder 07304024 Active 2017 Not Available [facility] 2 19:12:58 Asthma 946545610 Active 2017 Not Available [facility] 19:12:58 History of male erectile disorder 131901852 Active 2017 Not Available [facility] 2 19:12:58 Hyperchol esterolem ia 33180179 Active 2017 Not Available [facility] 2 19:12:58 Arthritis 6361343 Active 2017 Not Available [facility] 2 19:12:58 Essential hypertens ion 64358192 Active 2017 Not Available [facility] 2 19:12:58 Umbilical hernia 070975285 Active 2017 Not Available [facility] 2 19:12:58 Obstructi ve sleep apnea syndrome 21080042 Active 2017 Not Available [facility] 2 19:12:58 Does use hearing aid 478088816 Active 2017 Not Available [facility] 2 19:12:58 Labyrinth itis 88121188 Active 2017 Not Available [facility] 2 19:12:58 Dry eyes 326870176 Active 2017 Not Available [facility] 2 19:12:58 Chronic back pain 203660884 Active 2017 Not Available [facility] 2 19:12:58 Irritable bowel syndrome 43851075 Active 2017 Not Available [facility] 2 19:12:58 Type 2 diabetes mellitus 27022940 Active 2018 Not Available [facility] 2 19:12:58 Cough 52324213 Active 2021 Not Available [facility] 2 19:12:58 Hypotensi ve episode 34451241 Active 2021 Not Available [facility] 2 19:12:58 Anxiety 79262354 Active 2021 Not Available [facility] 2 19:12:58 Pain in left thumb 540027116791 9100 Active 2021 Not Available [facility] 2 19:12:58 COVID-19 659353669 Active 2022 DERICK CHAPMAN [address] [place], [address], [facility] [place] 3 09:27:15 Myocardia l infarctio n 00984193 Active 2022 DERICK CHAPMAN [address] [place] [address], [address], [facility] [place] 3 10:21:17 Diabetes mellitus without complicat ion 178516090 Active 2022 DERICK CHAPMAN [address] [place], [address], [facility] [place] 3 10:21:29 Exacerbat ion of moderate persisten t asthma 903246716 Active 2023 DERICK CHAPMAN [address] [place] [address], [address], [facility] [place] 4 14:36:52 Wheezing 37063034 Active 2023 DERICK CHAPMAN [address] [place] [address], [address], [facility] [place] 4 15:57:30 Acute bronchiti s 82069450 Active 2023 DERICK CHAPMAN [address] [place] [address], [address], [facility] [place] 4 16:54:19 Disorder due to type 2 diabetes mellitus 089630939 Active 2023 DERICK CHAPMAN [address] [place] [address], [address], [facility] [place] 4 13:46:57 Pain of left hip joint 552667445666 100 Active 2023 DERICK CHAPMAN [address] [place] [address], [address], [facility] [place] 4 13:50:27 Pain of right hip joint 626767812463 102 Active 2023 DERICK CHAPMAN [address] [place] [address], [address], [facility] [place] 4 13:54:16 Osteoarth ritis of hip 827294956 Active 2023 DERICK CHAPMAN [address] [place] [address], [address], [facility] [place] 4 12:02:33 Pain in right foot 389964652006 107 Active 2024 DERICK CHAPMAN [address] [place] [address], [address], [facility] [place] 5 16:18:32 Mixed conductiv e and sensorine ural hearing loss, bilateral 172403342 Active 2024 DERICK CHAPMAN [address] [place] [address], [address], [facility] 5 16:20:02 Problem Notes None recorded. Procedures Surgical History Date Name Laterality Status Provider Name and Address Organization Details Recorded Time 025 colonoscopy completed Izaiah Cazares [facility] 11/20/2024 15:18:52 005 Nerve surgery completed Shelbi Gongora NP, S [address] [place] [address], [address], [facility] 09/10/2018 14:26:45 004 Hernia repair w/mesh completed Shelbi Gongora NP, S [address] [place] [address], [address], [facility] [place] 09/10/2018 14:26:20 996 Arthroscopic Surgery completed Shelbi Gongora NP, S [address] [place] [address], [address], [facility] [place] 09/10/2018 14:25:52 Tonsillectomy completed Shelbi smith NP, S [address] [place] [address], [address], [facility] [place] 09/10/2018 14:24:48 Joint Replacement completed Shelbi Gongora NP, S [address] [place] [address], [address], [facility] [place] 09/10/2018 14:27:26 Imaging Results None recorded. Procedure Notes None recorded. Medical Equipment None Reported. Allergies Allergen ID Allergen Name Allergen Category Reaction Reaction Severity Criticality Documentation Date Start Date Code Code System Note Provider Name and Address Organization Details Recorded Time 6116 Trulicity medicatio n nausea moderate Not available 09/19/2022 51378 96 RxNorm DERICK CHAPMAN [address] [place], [address], [facility] [place] 2 14:38:54 Medications Name Sig Start Date Stop [...] DROP IN RIGHT EYE FOUR TIMES DAILY 02/22 completed Not Available Not Available Not [...] Available Not Available Not Available Fluad Quad 5865-7397 (65yr up)(PF) 60 mcg (15 mcg x [...] Available Anika Pen Needle 32 gauge x /32 USE DIRECTED WITH LANTUS ONCE AT BEDTIME active Not Available Not Available No t Available Vitals Date Recorded Body weight Body mass index (BMI) Body height Heart rate Oxygen saturation Systolic And Diastolic Provider Name and Address Organization Details Last Updated DateTime 5 44243.1 4 g 30.4 kg/m2 180.34 cm 68 /min 98 % 120/74 mm[Hg] [facility] 5 16:03:48 Date Recorded Body height Body mass index (BMI) Body weight Heart rate Oxygen saturation Systolic And Diastolic Provider Name and Address Organization Details Last Updated DateTime 2 179.07 cm 33.1 kg/m2 711806. 61 g 87 /min 97 % 138/92 mm[Hg] Ana Rodas [facility] 2 14:30:41 Date Recorded Body height Body mass index (BMI) Body weight Heart rate Oxygen saturation Systolic And Diastolic Provider Name and Address Organization Details Last Updated DateTime 3 179.07 cm 30.7 kg/m2 75866.5 4 g 70 /min 96 % 174/72 mm[Hg] Josie Coylemond [facility] 3 09:59:54 Date Recorded Body weight Heart rate Oxygen saturation Systolic And Diastolic Provider Name and Address Organization Details Last Updated DateTime 10/02/2024 90725.57 g 70 /min 95 % 118/72 mm[Hg] Patricia Drew [facility] 10/02/2024 13:31:29 Date Recorded Body height Body mass index (BMI) Body weight Oxygen saturation Heart rate Systolic And Diastolic Provider Name and Address Organization Details Last Updated DateTime 2 179.07 cm 32.8 kg/m2 243989. 79 g 97 % 76 /min 132/78 mm[Hg] DERICK CHAPMAN [address] [place], [address], [facility] 2 14:16:31 Social History Question Answer Notes LastModified by Organizat ion Details LastModified Time Tobacco Smoking Status Never Smoker Not Available [facility] 09/15/2020 03:36:23 What Was The Date Of [...] Time Father Myocardial infarction 76 cva, HTN yovani Not available 09/10/2018 14:24:12 Medical History Condition Response Coronary Artery Disease N Other N Gout N Blood Diseases N Kidney Stones N Hyperthyroidism N Blood Transfusion N Breast Cancer N Hypothyroidism N Lung Disease N Depression N COPD N Defects or Inherited Disease N Anesthesia Complications N Anxiety Disorder N Meniere's disease N Muscle, Joint, or Bone Problems N Obesity N Vision or Eye Problems N Arthritis N Polyps N Infertility N Mental Disorder N Cancer N Varicosities N Stroke N Endometriosis N Bladder or Kidney Problems N High Cholesterol N Liver Disease N Fibromyalgia N Headaches N Kidney Disease N Allergies/Hayfever N Heart Problems N Hospitalizations N Thyroid Problems N GI Problems N Skin Problems N Eating Disorder N Anemia N MRSA exposure N Constipation N Mental Illness N Ovarian Cancer N Diabetes N Seizures/Epilepsy N Tuberculosis N Congestive Heart Failure (CHF) N Eczema N Diverticulitis N Abuse/Domestic Violence N Asthma N Reflux/GERD N Hepatitis N Heart Disease N Pulmonary Embolism N Hypertension N Osteoporosis N Chicken Pox N Autism Spectrum Disorder (ASD) N Immunizations Vaccine Type Date Status Note Provider Nam e and Address Organization Details Recorded Time COVID-19, mRNA, LNP-S, PF, 30 mcg/0.3 mL dose 1 completed Not Available [facility] 12/27/2023 13:47:14 COVID-19, mRNA, LNP-S, PF, 30 mcg/0.3 mL dose 1 completed Not Available [facility] 12/27/2023 13:47:14 zoster recombinant 1 completed Not Available [facility] 12/27/2023 13:47:14 COVID-19, mRNA, LNP-S, PF, 30 mcg/0.3 mL dose 1 completed Not Available [facility] 12/27/2023 13:47:14 Influenza, split virus, quadrivalent, preservative 1 completed Not Available [facility] 12/27/2023 13:47:14 COVID-19, mRNA, LNP-S, PF, 30 mcg/0.3 mL dose 2 completed Not Available [facility] 12/27/2023 13:47:14 Influenza, split virus, quadrivalent, preservative 9 completed Not Available [facility] 12/27/2023 13:47:14 Influenza, split virus, trivalent, preservative 8 completed Not Available [facility] 12/27/2023 13:47:14 Influenza, split virus, quadrivalent, preservative 0 completed Not Available [facility] 12/27/2023 13:47:14 Tdap 0 completed Not Available [facility] 12/27/2023 13:47:14 zoster, unspecified formulation 0 completed Not Available [facility] 12/27/2023 13:47:14 Pneumococcal conjugate PCV 13 0 completed Not Available [facility] 12/27/2023 13:47:14 Past Encounters Encounter ID Performer Location Encounter Start Date Encounter Closed Date Diagnosis/Indication Diagnosis SNOMED-CT Code Diagnosis ICD10 Code Diagnosis IMO Codes Diagnosis Note [id number] Flex Cazares [facility] [address] [place] [address] 04/23/2018 14:14:15 04/23/2018 17:06:10 Lesion of skin of face 9289389759 06 L98.9 Hypercholesterolemia 136 94842 E78.00 stable, follow Essential hypertension 21880182 I10 well controlled Depressive disorder 3548 9007 F32.9 ongoing, stable Arthralgia of the upper arm 954085851 M25.519 nothing worrisome, prn ice, ibu Type 2 ana m betes mellitus 94938572 E11.9 follow, will check labs prior to next visit [id number] Flex Cazares [facility] [address],[place] [address] 09/10/2018 14:05:04 09/12/2018 08:51:04 Adult health examination 448354587 Z00.01 Active or passive immunization 240198872 Z23 Asthma 165620514 J45.90 9 well controlled Hypercholesterolemia 136 79630 E78.00 never did labs ordered, encouraged to complete Depressive disorder 3548 9007 F32.9 ongoing, ? worse . Pt. has phone #'s for therapists - will call to schedule & continue medication s Arthritis 5351100 M19.90 Essential hypertension 86585570 I10 controlled Diabetes mellitus 241862 09 E11.9 Discuss decrease carbs in diet Screening procedure 2012 5006 Z13.9 [id number] Flex Cazares [facility] [address] [facility] [address] [facility] [place] [address] 11/19/2018 11:31:47 11/19/2018 15:12:47 Pre-existing type 2 diabetes mellitus 834119578 E11.9 see notes, Hypercholesterolemia 136 69196 E78.00 never did labs ordered, encouraged to complete Essential hypertension 99229344 I10 controlled Asthma 670226041 J45.90 9 well controlled [id number] Flex Cazares [facility] [address] [facility] [address] 02/12/2019 14:44:25 02/12/2019 15:50:20 Pre-surgery evaluation 790457401 Z01.818 Per ACS 2017-18 protocol pt is deemed a low risk for the proposed procedure re hand osteoarthr itis and has a very low risk for perioperat bro cardiovasc ular event . He is instructed to take all his medication s as usual except for taking half doses of his metformin and glipizide He will be abstaining from taking his fenofibrat e and pravastati n that morning. [id number] Flex Cazares [facility] [address] [place] [address], [address] [address] 06/19/2019 14:13:26 06/19/2019 14:55:39 Diabetes mellitus 18473030 E11.9 poor control; poor diet compliance warned pt in detail states will try to be better denies cp sob etc i feel he needs insulin but he is hesitant Essential hypertension 11505537 I10 stable Obstructiv e sleep apnea syndrome 89307411 G47.33 has been doing very well and is been doing great until his machine has broken it is now unusable per Stret[facility]' he will need a new machine as this is medically necessary and he gains an absolute medical improvemne nt forom this [id number] Flex Cazares [facility] [address] [facility] [address] [facility] [place] [address] 09/20/2019 13:24:16 09/20/2019 14:00:26 Type 2 diabetes mellitus 86309193 E11.37X1 here for rechk and is still not doing well with his dm a1c is 9.3 relates he is not checking his lab discussed need to have his glucoses under better control also he admits to poor diet control eye exam is ok has mild cataracts discussed need to lose wgt and to have him drop the poor diet and to begin walking Essential hypertension 74168474 I10 stable not having any issues Obstructiv e sleep apnea syndrome 94845480 G47.33 has been doing very well and is been doing great until his machine has broken it is now unusable per Stret[facility]' he will need a new machine as this is medically necessary and he gains an absolute medical improvemne nt from this we are waiting to have his machine replaced Screening colonoscopy 44 1741227 Z12.11 Primary er ectile dysfunction 513295287 N52.9 [id number] Flex Cazares DO [facility] [address] [facility],[place] [address] 10/25/2019 10:01:05 10/25/2019 10:38:53 Asthma 592343846 J45.[address] s egment elevation myocardial infarction 661514620 I21.3 100% occluded LAD occluded stent Added brilinta, B alvin Discussed need to exercise and control sugar Will repeat echo next month to reassess EF Hypercholesterolemia 136 45524 E78.00 well controlled Type 2 ana m betes mellitus 00167683 E11.37X1 A1C 10 at hospital Added glargine PM, D/D glipizide Obstructiv e sleep apnea syndrome 11262887 G47.33 has been doing very well and is been doing great until his machine has broken it is now unusable per Stret[facility]' he will need a new machine as this is medically necessary and he gains an absolute medical improvemne nt from this we are waiting to have his machine replaced [id number] DO [facility] [address] [facility],[place] [address] 12/09/2019 13:42:43 12/09/2019 14:46:10 Seasonal allergic rhinitis 713286015 J30.2 Constant clear nasal discharge Rec trying OTC nasal steroid Arthritis 1198842 M19.90 L 2nd digit - hand surgery knows about this Essential hypertension 38689464 I10 stable not having any issues Obstructiv e sleep apnea syndrome 49791986 G47.33 Saw pulm and is getting sleep study Dec 17 Type 2 ana m betes mellitus 04977566 E11.37X1 A1C 10 at hospital NEEDS TO GET NEW LAB NOW Added glargine 30U PM, AND METFORMIN [id number] Flex Cazares DO [facility] [address] [facility] [address] [address] 03/06/2020 14:11:13 03/06/2020 15:06:10 Type 2 diabetes mellitus 76322520 E11.37X1 glargine 30U PM, AND METFORMIN Hypercholesterolemia 136 30955 E78.00 well controlled Asthma 865293296 J45.90 9 Well controlled NO WHEEZING Essential hypertension 71874355 I10 stable not having any issues Dyspnea at rest 75963176 7 R06.00 very sporadic no pattern calming himself makes it go away no obvious evid for a poss cardiac origin ecg is normal [id number] Flex Cazares DO [facility] [address] [facility] [address] 06/03/2020 14:10:45 06/03/2020 14:58:02 Type 2 diabetes mellitus 91520838 E11.37X1 glargine 30U PM, AND METFORMIN bid will try to get him trulicity approved will be very beneficial Depressive disorder 3548 9007 F32.9 Stable Essential hypertension 74263645 I10 stable not having any issues Asthma 517753722 J45.90 9 Well controlled NO WHEEZING 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 638742838 E11.43 Need to work on lowering A1C, eat earlier in afternoon Insomnia 262225419 F51.0 9 Has been an ongoing issue Needs to work on not napping during day to normalize sleep schedule Right late ral elbow tendinopathy 8924219638 03608 M77.11 Has been getting progressiv caity worse Recc OTC brace [id number] Flex Cazares DO [facility] [address] [facility] [address] [address] 08/05/2020 13:44:02 08/05/2020 14:44:54 Type 2 diabetes mellitus 70855034 E11.37X1 A1c 7.8 from 9.1 doing better now glargine 30U PM, AND METFORMIN bid will try to get him trulicity approved will be very beneficial Hypercholesterolemia 136 84048 E78.00 well controlled Asthma 526592539 J45.90 9 Well controlled NO WHEEZING Obstructiv e sleep apnea syndrome 98219138 G47.33 Saw pulm and is getting sleep study Fe Essential hypertension 19075970 I10 stable not having any issues [id number] Flex Cazares DO [facility] [address] [facility] [address] 7 10/06/2020 14:59:03 10/06/2020 15:54:30 Asthma 578535043 J45.909 O2 sat in office is 98% on RA Obstructiv e sleep apnea syndrome 93682678 G47.33 stable, uses CPAP Essential hypertension 89364933 I10 BP stable, BP in office was 110/76 Pre-surger y evaluation 758060017 Z01.818 based on history and physical evaluation patient is cleared for surgery [id number] Flex Cazares DO [facility] [address] [facility],[place], [place] 7 10/14/2020 13:45:55 10/14/2020 15:37:16 Hematochezia [id number] K92.1 will start with lab work up and see what going on Nausea [id number] R11.0 may be medication related 06323 Flex Cazares DO [facility] [address] [facility],[place] [employer] [place] 7 12/09/2020 08:39:14 12/09/2020 09:53:11 Type 2 diabetes mellitus 19929143 E11.37X1 A1c 7.8 from 9.1 doing better now glargine 30U PM, AND METFORMIN bid and have added the trulicity a1c is pending relates that the trulicity reaction will be watched and he will call me if worse he will get a1c shortly Essential hypertension 38251839 I10 stable not having any issues no cp no sob home bps have been sparse yest systolic was 130/80 Asthma 767417011 J45.90 9 Well controlled NO WHEEZING 82617 Flex Cazares DO [facility] [address] [facility] [address],[place] 7 03/10/2021 14:45:18 03/10/2021 15:18:23 Type 2 diabetes mellitus 28558150 E11.37X1 A1c is 7.3 from 7.8 from 9.1 doing better now glargine 30U PM, AND METFORMIN bid and have added the trulicity a1c is pending relates that the trulicity reaction will be watched and he will call me if worse he will get a1c shortly Depressive disorder 3540 9007 F32.9 Stable Essential hypertension 75279567 I10 stable not having any issues no cp no sob home bps have been sparse yest systolic was 130/80 79149 Flex Cazares [facility] [address] [facility] [address],[place] [address] 06/16/2021 13:31:49 06/16/2021 14:07:08 Essential hypertension 11205809 I10 stable not having any issues no cp no sob home bps have been sparse yest systolic was 130/80 Obstructiv e sleep apnea syndrome 27474767 G47.33 trying hard to use cpap usually getting only 2-3 hoursstron lgly encouraged to push this and wear it as long as possin]ble Type 2 ana m betes mellitus 63759606 E11.37X1 A1c is 7.5 7.3 from 7.8 from 9.1 doing better now glargine 30U PM, AND METFORMIN bid and have added the trulicity a1c is pending relates that the trulicity reaction will be watched and he will call me if worseurine microalb is negative Myocardial infarction 22 507334 I21.3 quiet no issues Hepatitis C screening 41 2791095 Z11.59 next visit Hypercholesterolemia 136 86512 E78.00 well controlled LDL is 58 Depressive disorder 3549 9007 F32.9 bothering more lately due to finances long discussion will have him tell me when he is ready for treatment 06191 Flex Cazares [facility] [address] [facility] [address],[place] [address] 10/05/2021 13:28:49 10/05/2021 15:15:08 Type 2 diabetes mellitus 42261096 E11.37X1 A1c is 7.3 and was 7.5, 7.3 from 7.8 from 9.1 doing better now glargine 30U PM, AND METFORMIN bid and have added the trulicity a1c is pending relates that the trulicity reaction will be watched and he will call me if worseurine microalb is negative Hypercholesterolemia 136 29155 E78.00 well controlled LDL is 58 Depressive disorder 3548 9007 F32.9 Prior talk: bothering more lately due to finances long discussion will have him tell me when he is ready for treatment Essential hypertension 48787578 I10 stable not having any issues no cp no sob home bps have been sparse yest systolic was 130/80 Diabetes otoniel lopez without complication 835939397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
--- OUTSIDE RECORDS SUMMARY | 2025-10-03 14:12 | XMS_ITS | Encounter Summary ---
Author Organization [facility] Address [address] [place] [address] Phone Care Team Providers Care Cable Assembler And Swager Name Role Phone Flex Cazares DO Primary Care Provider [phone] Encounter Details Date Type Department Care Team (Late st Contact Info) Description 08/20/2024 Procedure Pass [facility] Admitting Dept Virtual Department [address] [place] [address] Social History Tobacco Use Types Packs/Day Years [...] Description 10/27/2025 9:15 AM EST Office Visit [facility] [address] [facility] 3rd Floor, [address] [place] [address] Phil Salas DO [address] [facility] [address] [place] [address] [email or web address] documented as of this encounter Visit Diagnoses Not on filedocumented in this encounter Care Teams Cable Assembler And Swager Relationship Specialty Start Date End Date Flex Cazares DO PCP - General Internal Medicine 09/19/17 documented as of this encounter Additional Source Comments The information contained in this document represents components of the legal health record. It is not the complete legal health record.[facility]
--- OUTSIDE RECORDS SUMMARY | 2025-10-03 14:12 | XMS_ITS | Encounter Summary ---
Author Organization [facility] Address [address] [facility] [address] [place] [address] Phone Care Team Providers Care Music Theory Teacher Name Role Phone Flex Cazares DO Primary Care Provider [phone] Encounter Details Date Type Department Care Team (Latest Contact Info) Description 03/19/2024 Transcribe Orders Virtual Department [address] [place] [address] Emely Barrett PA [address] [place] [address] [place] [address] Wheezing (Primary Dx) Social History Tobacco Use [...] Description 10/27/2025 9:15 AM EST Office Visit [facility] [address] [facility] 3rd Floor, [address] [place], [place] [id number] Phil Salas DO [address] [facility] [address] [place] [address] [email or web address] documented as of this encounter Results * XR CHEST PA AND LATERAL 2 VIEWS (2024 10:48 AM EDT) Anatomical Region Laterality Modality Chest Computed Radiogr aphy 2024 2:40 PM EDT Impressions 2024 2:41 PM EDT No acute findings. Narrative 2024 2:41 PM EDT XR CHEST PA AND LATERAL 2 VIEWS Referring clinician's provided indication for this examination in [facility]: Wheezing; wheezing COMPARISON: 09/18/2022 FINDINGS: Lungs: Clear lungs. Linear atelectasis in the left lung base. Pleura: No pleural effusion. No pneumothorax Heart/Mediastinum: Heart size normal. Bones/Soft Tissues: No acute finding Procedure Note Gus Vu MD, BESSY - 2024 XR CHEST PA AND LATERAL 2 VIEWS Referring clinician's provided indication for this examination in [facility]:Wheezing; wheezing COMPARISON: 09/18/2022 FINDINGS: Lungs: Clear lungs. Linear atelectasis in the left lung base. Pleura: No pleural effusion. No pneumothorax Heart/Mediastinum: Heart size normal. Bones/Soft Tissues: No acute finding IMPRESSION: No acute findings. us Emely SEPULVEDA IMG XR CHEST Final Resul t documented in this encounter Visit Diagnoses Diagnosis Wheezing- Primary Wheezing documented in this encounter Care Teams Music Theory Teacher Relationship Specialty Start Date End Date Flex Cazares DO [email or web address] PCP - General Internal Medicine 09/19/17 documented as of this encounter Additional Source Comments The information contained in this document represents components of the legal health record. It is not the complete legal health record.[facility]
--- OUTSIDE RECORDS SUMMARY | 2025-10-03 14:13 | XMS_ITS | Encounter Summary ---
Author Organization [facility] Address [address] [place] [address] Phone Care Team Providers Care Dam Tender Assistant Name Role Phone Flex Cazares DO Primary Care Provider [phone] Encounter Details Date Type Department Care Team (Late st Contact Info) Description 10/28/2023 Procedure Pass [facility], Ct Scan - [address] [address] Social History Tobacco Use Types Packs/Day Years Used Date Smoking Tobacco: Light Smoker Cigars Smokeless Tobacco: Never Comments:Rarely ~3 per year Alcohol Use Standard Drinks/Week Comments Not Currently 0 (1 standard drink = 0.6 oz pur e alcohol) rare Education Answer Date Recorded Are you interested [...] Date of Assessment Author No Risk Indicated 10/28/2023 8:24 AM Catracho Lowe RN * [place] Suicide Severity Rating Scale (Screener/Recent Self-Report) Question Answer Date of Assessment Author 1. Wish to be (Past 1 Month) No 023 8:24 AM Aniyah Lowe RN 2. Non-Specific Active Suici peyton Thoughts (Past 1 Month) No 10/28/2023 8:24 AM Aniyah Lowe RN 6. Suicidal Behavior (Lifetime) No 8:24 AM Aniyah Lowe RN documented as of this encounter Plan of Treatment Upcoming Encounters Date Type Department Care Team (Late st Contact Info) Description 10/27/2025 9:15 AM EST Office Visit [facility] [address] [place] [address] [address] [facility], [address] [place] [address] Phil Salas DO [address] [address] documented as of this encounter Visit Diagnoses Not on filedocumented in this encounter Care Teams Dam Tender Assistant Relationship Specialty Start Date End Date Flex Cazares DO PCP - General Internal Medicine 09/19/17 documented as of this encounter Additional Source Comments The information contained in this document represents components of the legal health record. It is not the complete legal health record.[facility]
--- OUTSIDE RECORDS SUMMARY | 2025-10-03 14:13 | XMS_ITS | Encounter Summary ---
Author Organization [facility] Address [address] [place] [address] Phone Care Team Providers Care Report Writer Name Role Phone Flex Cazares DO Primary Care Provider [phone] Reason for Referral * Occupational Therapy (Elective) - Closed Specialty Diagnoses / Procedures Referred By Contsy t Referred To Contact Occupational Therapy Diagnoses Encounter for rehabilitation Left Index finger DIP /PIP Suni Christian PA Phone: tel: fax: [address] [address] Phone: tel: Referral ID Status Reason Start Date Expiration Date Visits Re quested Visits Authorized [id number] Closed 11/03/2020 11/12/2020 99 [phone] Encounter Details Date Type Department Care Team (Latest Contact Info) Description 11/03/2020 Transcribe Orders [facility] [address] [place] [address] Suni Christian PA [address] [place] [phone] Encounter for rehabilitation (Primary Dx) Social [...] Description 10/27/2025 9:15 AM EST Office Visit [facility] 22 [facility] 3rd Floor, [address] [place] [address] Phil Salas DO 22 [facility] [address] [place] [address] [email or web address] Scheduled Referrals Name Type Priority Associated Diagnoses Orde r Schedule Ambulatory referral to [facility] Occupational Therapy Outpatient Referral Routine Encounter for rehabilitation Ordered: 11/03/2020 documented as of this encounter Visit Diagnoses Diagnosis Encounter for rehabilitation- Primary documented in this encounter Care Teams Report Writer Relationship Specialty Start Date End Date Flex Cazares DO PCP - General Internal Medicine 09/19/17 documented as of this encounter Additional Source Comments The information contained in this document represents components of the legal health record. It is not the complete legal health record.[facility]
--- OUTSIDE RECORDS SUMMARY | 2025-10-03 14:13 | XMS_ITS | Encounter Summary ---
Author Organization [facility] Address [facility] [employer] [address] [address] Phone Care Team Providers Care Brand Advisor Name Role Phone Flex Cazares DO Primary Care Provider [phone] Encounter Details Date Type Department Care Team (Late st Contact Info) Description 12/14/2023 Procedure Pass [place] Admitting Dept - Virtual Department [address] [place] [address] Social History Tobacco Use Types Packs/Day Years [...] Description 10/27/2025 9:15 AM EST Office Visit [facility] 22 [facility] 3rd Floor, [address] [place] [address] Phil Salas DO 22 [facility] [address] [place] [address] [email or web address] documented as of this encounter Visit Diagnoses Not on filedocumented in this encounter Care Teams Brand Advisor Relationship Specialty Start Date End Date Flex Cazares DO PCP - General Internal Medicine 09/19/17 documented as of this encounter Additional Source Comments The information contained in this document represents components of the legal health record. It is not the complete legal health record.[facility]
--- OUTSIDE RECORDS SUMMARY | 2025-10-03 14:13 | XMS_ITS | Encounter Summary ---
Author Organization [facility] Address [address] [place] [address] Phone Care Team Providers Care Rack Puller Name Role Phone Flex Cazares DO Primary Care Provider [phone] Flex Cazares DO Unavailable Reason for Referral * Occupational Therapy (Routine) - Closed Specialty Diagnoses / Procedures Referred By Mk almonte Referred To Contact Occupational Therapy Diagnoses Encounter for rehabilitation Melissa Hart MD Phone: tel: fax: mailto:[email or web address]:[email or web address] Referral ID Status Reason Start Date Expiration Date Visits Re quested Visits Authorized [id number] Closed 04/11/2018 04/10/2019 20 20 Encounter Details Date Type Department Care Team (Latest Contact Info) Description 03/01/2018 Transcribe Orders [facility] [address] [place] [address] Melissa Hart MD [address] [place] [phone] [email or web address] Encounter for rehabilitation (Primary Dx) Social History [...] Description 10/27/2025 9:15 AM EST Office Visit [facility] [address] [facility] [address], [address] [place] [address] Phil Salas DO [address] [facility] [address] [place] [address] [email or web address] documented as of this encounter Procedures Procedure Name Priority Date/Time Associated Diagnosis Comments AMB REFERRAL TO [facility] OCCUPATIONAL THERAPY Routine 04/11/2018 12:34 PM EDT Encounter for rehabilitation documented in this encounter Results * Ambulatory referral to [facility] Occupational Therapy (04/11/2018 12:34 PM EDT) Melissa Hart MD AMB [facility] REFERRALS Final Result documented in this encounter Visit Diagnoses Diagnosis Encounter for rehabilitation- Primary documented in this encounter Care Teams Rack Puller Relationship Specialty Start Date End Date Flex Cazares DO [email or web address] PCP - General Internal Medicine 09/19/17 Flex Cazares DO [address] [place] [address] Insurance Assigned Provider 02/10/18 10/19/19 documented as of this encounter Additional Source Comments The information contained in this document represents components of the legal health record. It is not the complete legal health record.[facility]
--- OUTSIDE RECORDS SUMMARY | 2025-10-03 14:13 | XMS_ITS | Encounter Summary ---
Author Organization [facility] Address [address] [facility] [address] [place] [phone] Phone Care Team Providers Care Armed Security Professional Name Role Phone Flex Cazares DO Primary Care Provider [phone] Encounter Details Date Type Department Care Team (Latest Contact Info) Description 10/16/2020 Transcribe Orders Virtual Department [address] [place] [address] Emely Barrett PA [address] [place] [address] [place] [address] Melena (Primary Dx); Hematochezia Social History Tobacco [...] Description 10/27/2025 9:15 AM EST Office Visit [facility] [address] [facility] [address], [address] [place] [address] Phil Salas DO [address] [facility] [address] [place] [address] [phone] ([email or web address]) [email or web address] documented as of this encounter Results * [...] gallstones. No evidence of cholecystitis. us Emely Izaiah SEPULVEDA IMG US ABDOMEN Final Resul t documented in this encounter Visit Diagnoses Diagnosis Melena- Primary Blood in stool Hematochezia Blood in stool Melena Blood in stool Hematochezia Blood in stool documented in this encounter Care Teams Armed Security Professional Relationship Specialty Start Date End Date Flex Cazares DO [email or web address] PCP - General Internal Medicine 09/19/17 documented as of this encounter Additional Source Comments The information contained in this document represents components of the legal health record. It is not the complete legal health record.[facility]
[2025-10-03 18:29] LABS: MANUAL DIFF FLAG NO
[2025-10-03 18:45] LABS: Hematocrit 50.1 % (42.0-52.0); Hemoglobin 16.8 g/dl (14.0-18.0); Imm Gran Abs Auto 0.01 X10*3/uL (0.00-0.03); Imm Gran Pct Auto 0.1 % (0.0-0.4); Lymphocytes Absolute Auto 3.3 X10*3/uL (1.2-4.9); Mean Corpuscular HGB Conc 33.5 g/dl (31.0-36.0); Mean Corpuscular Hemoglobin 29.1 pg (27.0-33.0); Mean Corpuscular Volume 86.7 fL (80.0-98.0); NRBC Abs Auto 0.000 X10*3/uL (0.0-0.012); NRBC Pct Auto 0.0 /100WBC (0.0-0.2); Platelet Count 329 X10*3/uL (160-400); Red Blood Count 5.78 X10*6/uL (4.60-5.80); White Blood Count 9.6 X10*3/uL (4.8-10.8)
[2025-10-03 19:06] LABS: Alanine Aminotransferase 16 U/L (0-40); Albumin Level 4.6 g/dL (3.5-5.0); Alkaline Phosphatase 120 U/L (39-117); Anion Gap 12 (12-20); Aspartate Amino Transferase 29 U/L (5-37); Blood Urea Nitrogen 13 mg/dL (9-16); Calcium 9.2 mg/dL (8.4-10.2); Carbon Dioxide 27 mmol/L (22-29); Chloride 104 mmol/L (96-108); Cholesterol 99 mg/dL (<200); Estimated Glomerular Filt Rate > 60; HDL Cholesterol 39 mg/dL (>40); Potassium 4.1 mmol/L (3.3-5.1); Sodium 139 mmol/L (135-145); Total Protein 6.5 g/dL (6.5-8.0); Triglycerides 171 mg/dL (<150)
== END 2025-10-03 13:42 | disposition home or self-care (01) ==
LOC: HO.MANLDS 13:41
PROVIDERS: Visit Provider Physician Assistant
DX: E11.37X1 Type 2 diabetes mellitus with diabetic macular edema, resolved following treatment, right eye (principal)
CPT/HCPCS: 36415; 80053; 80061; 83036; 85025